=== PATIENT | female | born 2000 | race Caucasian/White ===

== ENCOUNTER 2020-10-27 11:54 | Outpatient (REF) | payer OTHER, SELFPAY | END 2020-10-27 11:55 | disposition home or self-care (01) | LOC: HO.LAB 11:54 | PROVIDERS: Visit Provider Internal Medicine | DX: Z20.828 Contact with and (suspected) exposure to other viral communicable diseases (principal) | CPT/HCPCS: C9803; U0003 ==

== ENCOUNTER 2020-11-11 17:15 | Outpatient (REF) | payer OTHER, SELFPAY | END 2020-11-11 17:16 | disposition home or self-care (01) | LOC: HO.LAB 17:15 | PROVIDERS: Visit Provider Internal Medicine | DX: Z20.828 Contact with and (suspected) exposure to other viral communicable diseases (principal) | CPT/HCPCS: 36415; C9803; U0003 ==

== ENCOUNTER 2020-12-02 16:11 | Emergency (ER) | payer OTHER, SELFPAY ==
[2020-12-02 17:15] VITALS: BP 121/66; PULSE 91; RESP 16; TEMP 35.7; O2SAT 99; BMI 35.3
--- NOTE | 2020-12-02 17:34 | ED.EAR ---
HPI - Ear Problem General Chief complaint: Ear Problems Stated complaint: Earache Time Seen by Provider: 12/02/20 17:17 Source: patient Mode of arrival: ambulatory Limitations: no limitations History of Present Illness HPI Narrative: 20-year-old female with past medical history of recurrent ear infections history of myringotomy tube being bilaterally presents with 1 day of bilateral ear pain, left worse than the right. She does not describe any fevers or chills, loss of hearing, difficulty swallowing or any other concerning symptoms at this time. MD Complaint: ear pain Location: bilateral Duration: constant Severity: moderate Relieving factors: nothing Exacerbating factors: chewing Discharge from ear: no Treatment prior to arrival: oral analgesic Related Data Previous Rx's Medication Instructions Recorded amoxicillin-pot clavulanate 17 ml PO Q12H #340 ml 12/02/20 [Augmentin] Allergies Allergy/AdvReac Type Severity Reaction Status Date / Time No Known Allergies Allergy Verified 12/02/20 17:21 [No Known Allergies*] Review of Systems Review of Systems: Constitutional: No Fever, No Chills ENT/Mouth: Bilateral ear pain Ear Pain, No Hoarseness, No sore throat Eyes: No Eye Pain, No Swelling, No Redness, No Foreign Body Cardiovascular: No Chest Pain, No SOB Respiratory: No Cough, No Dyspnea Gastrointestinal: No Nausea, No Vomiting, No Diarrhea, No abdominal Pain Genitourinary: No Dysuria, No Hematuria Musculoskeletal: No joint pain, No Myalgias, No Joint Swelling Skin: No Skin lacerations, No rash Neuro: No Weakness, No Numbness, No Paresthesias, No Loss of Consciousness, No Dizziness, No Headache Psych: No Anxiety/Panic, No Depression Heme/Lymph: no easy bruising, no Lymphadenopathy Endocrine: No Polyuria, No Polydipsia Yes all other systems are reviewed and are negative PMFSH Past Medical History Attestation statement: The following information was validated with the patient. Source: old records reviewed Medical History Ear infection Social History Social History Alcohol intake: never Smoked in Last 30 Days: No Use of substances other than those prescribed or required for medical reasons: No Any prior treatment program specific to substance use: No Advance Directives: No Advance Directives Information Provided: Yes Physical Exam Vital Signs: Vital Signs: Last Vital Signs Temp 96.2 F L 12/02/20 17:15 Pulse 91 12/02/20 17:15 Resp 16 12/02/20 17:15 BP 121/66 12/02/20 17:15 Pulse Ox 99 12/02/20 17:15 Body Mass Index 35.3 Appearance: Alert. Oriented X3. No acute distress. Eyes: Pupils equal, round and reactive to light. ENT: Pharynx normal. Tympanic membranes scarred bilaterally secondary to tubes placed as a child, bulging membrane noted to the left, no purulent drainage noted. Neck: Normal inspection. Neck supple. No lymphadenopathy, no mastoid tenderness. CVS: Normal heart rate and rhythm. Pulses normal. Respiratory: No respiratory distress. Breath sounds normal. Abdomen: Soft and nontender. Skin: Skin warm and dry. Normal skin color. Normal skin turgor. Extremities: No lower extremity edema. Neuro: No motor deficit. No sensory deficit. Course Course Course Narrative: 20-year-old female with past medical history of recurrent ear infections presents with bilateral ear pain, left worse than the right. Inspection indicates scarring to bilateral tympanic membrane secondary to myringotomy tube in as a child. Membranes are intact, bulging noted to left. Plan of care is to treat with Augmentin, patient does not swallow pills so we will provide liquid Augmentin for her. Referral to ENT. Patient verbalized understanding of and agrees plan of care discharge home. MDM - Ear Differential Diagnosis Differential diagnosis: Likely otitis externa, otitis media and ruptured TM Medical Records Attestation: I reviewed the patient's medical records. Discharge Plan Discharge Clinical Impression: Otitis media Patient Disposition: Home, Self-Care Instructions: Serous Otitis Media (ED) Additional Instructions: You evaluated for bilateral ear pain. We are treating you for otitis media with Augmentin. Please take this medication as directed and complete the entire course of this antibiotic. Please follow-up with ENT. Call and make an appointment. Thank you for choosing this emergency department for evaluation. Please follow-up with primary care physician as needed. Return to the emergency department for any new, concerning, or worsening symptoms. Prescriptions: New amoxicillin-pot clavulanate [Augmentin] 250-62.5 mg/5 mL suspension for reconstitution 17 ml PO Q12H Qty: 340 RF: 0 Referrals: Narciso Martin [Physician] - 2 days Interventions: ED Discharge Assessment Last Done: 12/02/20 18:37 Discharge Date/Time: 12/02/20 18:58 Print Language: Khmer
== END 2020-12-02 18:58 | disposition home or self-care (01) ==
PROVIDERS: Emergency Provider Emergency Medicine; PCP Physician Assistant
DX: H66.93 Otitis media, unspecified, bilateral (principal); Z79.899 Other long term (current) drug therapy
CPT/HCPCS: 99283; 99284

== ENCOUNTER 2021-06-08 19:09 | Emergency (ER) | payer OTHER, SELFPAY ==
[2021-06-08 19:20] VITALS: BP 136/77; PULSE 82; RESP 16; TEMP 36.8; O2SAT 99; BMI 36.6
--- NOTE | 2021-06-08 20:24 | ED.GENADULT ---
HPI - General Adult General Chief complaint: General Medical Stated complaint: ear infection, uti etc Time Seen by Provider: 06/08/21 20:06 Source: patient Mode of arrival: ambulatory Limitations: no limitations History of Present Illness HPI narrative: Patient presents ED for right-sided ear pain and dysuria. Patient states history of multiple ear infections. Patient recently evaluated by ENT specialist who told her she did not have any ear infection and is fine. Patient does have tympanic tubes. Patient denies any abdominal pain, nausea, vomiting, flank pain, fever, or chills. Related Data Previous Rx's Medication Instructions Recorded amoxicillin 250 mg-potassium 17 ml PO Q12H #340 ml 12/02/20 clavulanate 62.5 mg/5 mL oral suspension (Augmentin) cephalexin 500 mg capsule 500 mg PO QID #28 cap 06/08/21 Allergies Allergy/AdvReac Type Severity Reaction Status Date / Time No Known Allergies Allergy Verified 06/08/21 21:49 [No Known Allergies*] PMFSH Past Medical History Medical History Ear infection Social History Social History Alcohol intake: never Advance Directives: No Advance Directives Information Provided: Yes Patient : No Physical Exam Vital Signs: Vital Signs: Last Vital Signs Temp 98.2 F 06/08/21 19:20 Pulse 82 06/08/21 19:20 Resp 16 06/08/21 19:20 BP 136/77 06/08/21 19:20 Pulse Ox 99 06/08/21 19:20 Body Mass Index 36.6 Const: General: cooperative, healthy appearing, comfortable, no acute distress, well developed, alert and awake Orientation/consciousness: patient oriented x3 HENMT: Other: Patient has bilateral tympanic tubes. No signs for infection in either ear Head: Yes normal to inspection, Yes No palpable skull fracture present, Yes normocephalic and Yes atraumatic Ears: hearing grossly normal bilaterally, external ears normal, EAC's normal, mastoids normal and no periauricular adenopathy Eyes: General: appearance normal, both eyes and all related structures Neck: Neck: Yes normal visual inspection, Yes full ROM, Yes no lymphadenopathy, Yes no meningeal signs, Yes trachea midline, Yes supple and No tender Chest: Chest palpation & inspection: normal inspection of the chest and normal palpation of entire chest wall Resp: Effort & Inspection: normal respiratory effort and able to speak in complete sentences Auscultation: clear to auscultation bilaterally Cardio: Jugular venous distension: no JVD Heart sounds: S1 normal heart sound present and S2 normal heart sound present GI: Inspection: Yes normal to inspection and No abdominal wall ecchymosis Palpation (GI): Soft to palpation, not firm, nontender, no guarding and not rigid : General: No CVA tenderness and Yes no CVA tenderness Back/Spine/Pelvis: Back: no CVA tenderness, No CVA tenderness and No back tenderness Skin: General skin exam: no rashes or lesions noted and abnormal elasticity Neuro: General: patient oriented x3 and no meningeal signs Cranial nerves: Yes CN's II-XII intact bilaterally Extrem: General: Yes normal to inspection and Yes full ROM Psych: Appearance: grossly normal, well kempt and not disheveled Course Course Course Narrative: Ear does not look infected. Will send UA. Reevaluation(s) Reevaluation #1: UA shows urinary tract infection. Will be discharged with Keflex Time: 21:57 Medical Decision Making Lab Data Labs: Lab Results 06/08/21 Range/Units 19:38 Urine Color YELLOW Urine Appearance HAZY Urine pH 6.0 (5.0-8.0) Ur Specific [place] >= 1.030 H (1.005-1.025) Urine Protein NEG (NEG-TRACE) MG/DL Urine Glucose (UA) NEG (NEG) MG/DL Urine Ketones NEG (NEG) MG/DL Urine Blood TRACE (NEG) Urine Nitrite NEG (NEG) Ur Leukocyte Esterase TRACE H (NEG) Urine RBC 0-2 (0) /HPF Urine WBC 30-49 H (0-4) /HPF Ur Squamous Epith Cells 2+ /LPF Urine Bacteria 3+ /LPF Discharge Plan Discharge Clinical Impression: UTI (urinary tract infection) Patient Disposition: Home, Self-Care Instructions: Urinary Tract Infection in Women (ED), Earache (ED) Additional Instructions: Your ear does not show infection. A urine shows a urinary tract infection. You will be discharged with antibiotics. Return to ED for any abdominal pain, nausea, vomiting, fever, chills, flank pain, hematuria, vaginal discharge, vaginal bleeding, headache, dizziness, worsening ear pain, or any other concerning symptoms. Please follow up wiht PCP Prescriptions: New cephalexin 500 mg capsule 500 mg PO QID Qty: 28 RF: 0 No Action amoxicillin-pot clavulanate [Augmentin] 250-62.5 mg/5 mL suspension for reconstitution 17 ml PO Q12H Qty: 340 RF: 0 Stand Alone Forms: Work/School Release Interventions: ED Discharge Assessment Last Done: 06/08/21 22:10 Discharge Date/Time: 06/08/21 22:11 Print Language: [place]
[2021-06-08 20:35] LABS: Glucose Urine UA NEG (NEG); Leukocyte Esterase Urine TRACE (NEG); Nitrite Urine NEG (NEG); Specific Gravity - Urine >= 1.030 (1.005-1.025); UACC Culture Trigger YES; Urine Blood TRACE (NEG); Urine Ketones NEG (NEG); Urine Protein NEG (NEG-TRACE)
[2021-06-08 20:36] LABS: Appearance Urine HAZY; Color Urine YELLOW
[2021-06-08 20:58] LABS: Bacteria Urine 3+ /LPF; RBC Urine 0-2 /HPF (0); Squamous Epithelial Cell Urine 2+ /LPF; WBC Urine 30-49 /HPF (0-4)
== END 2021-06-08 22:11 | disposition home or self-care (01) ==
PROVIDERS: Emergency Medicine; Physician Assistant; Emergency Provider Emergency Medicine Emergency Medical Services
DX: N39.0 Urinary tract infection, site not specified (principal); H92.01 Otalgia, right ear; R30.0 Dysuria; Z79.899 Other long term (current) drug therapy
CPT/HCPCS: 36415; 81001; 87086; 87088; 87186; 99284

== ENCOUNTER 2022-01-30 13:13 | Emergency (ER) | payer OTHER, SELFPAY ==
--- NOTE | ~2022-01-30 | US_ITS ---
EXAMINATION: US OBSTETRICAL ULTRASOUND CLINICAL INFORMATION: Abdominal cramping and positive test. COMPARISON: None. LMP: 12/10/2021. Gestational age by maternal dates is 7 weeks 2 days. Estimated date of delivery by maternal dates is 09/16/2022. TECHNIQUE: Transabdominal and transvaginal first trimester OB ultrasound. Transvaginal exam was performed for better visualization of the gestational sac FINDINGS: The uterus is normal in size and shape. There is an intrauterine gestational sac. Mean sac diameter measures 0.8 cm suggesting gestational age of 5 weeks 3 days. No pole or yolk sac is seen. The cervix is normal. The maternal ovaries are normal. There is no fluid in the pelvis. US/US OB pelvic and transvaginal IMPRESSION: Intrauterine gestational sac. Mean sac diameter suggests gestational age of 5 weeks 3 days. No pole or yolk sac seen. This may be due to early gestational age.
[2022-01-30 13:35] VITALS: BP 127/77; PULSE 90; RESP 18; TEMP 37.1; O2SAT 99; BMI 36.3
[2022-01-30 13:52] LABS: Appearance Urine CLEAR; Color Urine YELLOW; Glucose Urine UA NEG (NEG); Leukocyte Esterase Urine NEG (NEG); Nitrite Urine NEG (NEG); Urine Blood NEG (NEG); Urine Ketones NEG (NEG); Urine Protein NEG (NEG-TRACE)
[2022-01-30 13:53] LABS: UPreg QC Valid YES; Urine Pregnancy POSITIVE (NEGATIVE)
--- NOTE | 2022-01-30 14:33 | ECG_ITS ---
Test Reason : CHEST PAIN Blood Pressure : / mmHG Vent. Rate : 081 BPM Atrial Rate : 081 BPM P-R Int : 134 ms QRS Dur : 084 ms QT Int : 350 ms P-R-T Axes : 044 047 019 degrees QTc Int : 406 ms Sinus rhythm with marked sinus arrhythmia Otherwise normal ECG No previous ECGs available Referred By: Jessica Rodríguez Electronically Signed By:TARUN BARRAZA
[2022-01-30 15:28] LABS: IDNOW Serial# 08D9AD1C
[2022-01-30 15:29] LABS: MANUAL DIFF FLAG NO
[2022-01-30 15:29] LABS: COVID-19 Test Negative (Negative); IDNOW Serial# 16C4AD1C
[2022-01-30 15:31] LABS: Influenza A Negative (Negative); Influenza B2 Negative (Negative)
[2022-01-30 15:31] LABS: Basophils Absolute Auto 0.1 X10*3/uL (0.0-0.2); Basophils Percent Auto 0.5 % (0-2); Eosinophils Absolute Auto 0.1 X10*3/uL (0.0-0.4); Eosinophils Percent Auto 1.4 % (0-4); Hematocrit 42.3 % (37.0-47.0); Hemoglobin 13.4 g/dl (12.0-16.0); Imm Gran Abs Auto 0.03 X10*3/uL (0.00-0.03); Imm Gran Pct Auto 0.3 % (0.0-0.4); Lymphocytes Absolute Auto 2.8 X10*3/uL (1.2-4.9); Lymphocytes Percent Auto 27.9 % (20-40); Mean Corpuscular HGB Conc 31.7 g/dl (31.0-35.0); Mean Corpuscular Hemoglobin 24.6 pg (27.0-33.0); Mean Corpuscular Volume 77.8 fL (80.0-98.0); Mean Platelet Volume 10.7 fL (9.4-12.3); Monocytes Absolute Auto 0.6 X10*3/uL (0.1-1.2); Monocytes Percent Auto 6.4 % (2-11); Neutrophils Absolute Auto 6.3 x10*3/uL (2.0-8.3); Neutrophils Percent Auto 63.5 % (45-73); Platelet Count 314 X10*3/uL (160-400); Red Blood Count 5.44 X10*6/uL (4.20-5.50); Red Cell Distribution Width 13.2 % (11.0-16.0); White Blood Count 9.9 X10*3/uL (4.8-10.8)
[2022-01-30 15:47] VITALS: BP 119/77; PULSE 93
[2022-01-30 15:47] LABS: INTERNATIONAL NORM RATIO 1.2 (0.9-1.1); Prothrombin Time 13.2 SEC (9.9-13.0)
[2022-01-30 15:52] LABS: Alanine Aminotransferase 28 U/L (0-31); Albumin Level 4.3 g/dL (3.5-5.0); Alkaline Phosphatase 87 U/L (39-117); Anion Gap 11 (12-20); Aspartate Amino Transferase 15 U/L (5-31); Bilirubin Total 0.3 mg/dL (0.0-1.0); Blood Urea Nitrogen 12 mg/dL (9-16); Calcium 9.2 mg/dL (8.4-10.2); Carbon Dioxide 22 mmol/L (22-29); Chloride 109 mmol/L (96-108); Creatinine Clr Calc Pharmacy 120.7; Estimated Glomerular Filt Rate > 60; Glucose Random 90 mg/dL (60-115); Potassium 4.1 mmol/L (3.3-5.1); Sodium 138 mmol/L (135-145); Total Protein 7.1 g/dL (6.5-8.0)
--- NOTE | 2022-01-30 15:52 | ED_ITS ---
HPI - General Adult General Chief complaint: General Medical <THA Horton Last Filed: 01/30/22 16:37> Stated complaint: dizziness/abd pain/chest tightness <THA Horton Last Filed: 01/30/22 16:37> Time Seen by Provider: 01/30/22 14:06 <THA Horton Last Filed: 01/30/22 16:37> Source: patient <THA Horton Last Filed: 01/30/22 16:37> Mode of arrival: ambulatory <THA Horton Last Filed: 01/30/22 16:37> Limitations: no limitations <THA Horton Last Filed: 01/30/22 16:37> History of Present Illness HPI narrative: 21-year-old female with no significant past medical history presenting to the ED with complaints of intermittent lightheadedness/dizziness with feeling like her heart is racing and abdominal cramping for the past 2 weeks therefore she came here for further evaluation treatment today. She reports her last mens trual period was 12/10/2021. She denies any changes in vision, headaches, ear pain, ringing of the ears, nausea/ vomiting, shortness of breath, dyspnea on exertion, orthopnea, cough, lower extremity edema, calf tenderness, paresthesias, radiation of the abdominal pain, dysuria, hematuria, abnormal v aginal discharge, abnormal vaginal bleeding, recent travel or sick contacts or any other symptoms complaints or concerns at this time. <THA Horton Last Filed: 01/30/22 16:37> MD complaint: Multiple complaints <THA Horton Last Filed: 01/30/22 16:37> Onset (ago): week(s) (2) <THA Horton Last Filed: 01/30/22 16:37> Related Data Home medications: Previous Rx's Medication Instructions Recorded amoxicillin 250 mg-potassium 17 ml PO Q12H #340 ml 12/02/20 clavulanate 62.5 mg/5 mL oral suspension (Augmentin) cephalexin 500 mg capsule 500 mg PO QID #28 cap 06/08/21 <THA Horton Last Filed: 01/30/22 16:37> Allergies/adverse reactions: Allergies Allergy/AdvReac Type Severity Reaction Status Date / Time No Known Allergies Allergy Verified 06/08/21 21:49 [No Known Allergies*] <THA Horton - Last Filed: 01/30/22 16:37> Review of Systems Review of Systems: Constitutional : No Weight loss, No Fever, No Chills, No Night Sweats, No Fatigue, No Malaise ENT/Mouth : No Hearing loss, No Ear Pain, No Nasal Congestion, No Sinus Pain, No Hoarseness, No sore throat, No Rhinorrhea, No Swallowing Difficulty Eyes: No Eye Pain, No Swelling, No Redness, No Foreign Body, No Discharge, No Vision Changes Cardiovascular : + palpitations, No Chest Pain, No SOB, No Dyspnea on Exertion, No Orthopnea, No Edema Respiratory : No Cough, No Sputum, No Wheezing, No Smoke Exposure, No Dyspnea Gastrointestinal : No Nausea, No Vomiting, No Diarrhea, No Constipation, + abdominal Pain, No Hematochezia, No Melena Genitourinary : no irregular bleeding, No Dysuria, No Urinary Frequency, No Hem aturia, No Urinary Incontinence, No Urgency, No Flank Pain, No Urinary Flow Changes, No Hesitancy Musculoskeletal : No joint pain, No Myalgias, No Joint Swelling Skin : No Skin Lesions, No rash Neuro : +lightheadedness, No Weakness, No Numbness, No Paresthesias, No Loss of Consciousness, No Dizziness, No Headache Psych : No Anxiety/Panic, No Depression, No SI/HI/AH/VH, No Social Issues, Heme/Lymph: No Bruising, No Bleeding,No Lymphadenopathy Endocrine : No Polyuria, No Polydipsia, No Temperature Intolerance <THA Horton - Last Filed: 01/30/22 16:37> Yes all other systems are reviewed and are negative <THA Horton - Last Filed: 01/30/22 16:37> [facility] Past Medical History Attestation statement: The following information was validated with the patient. <THA Horton - Last Filed: 01/30/22 16:37> Medical History: Medical History Ear infection <THA Horton - Last Filed: 01/30/22 16:37> Social History Social History: Social History Alcohol intake: never Advance Directives: No Advance Directives Information Provided: Yes <THA Horton - Last Filed: 01/30/22 16:37> Physical Exam ED Vital Signs: Vital Signs - 24 hr 01/30/22 13:35 01/30/22 15:47 Temperature 98.7 F Pulse Rate 90 93 Respiratory Rate 18 Blood Pressure 127/77 119/77 Pulse Oximetry 99 BMI result Body Mass Index 36.3 vital signs have been reviewed as normal and appeared to be correct. Blood pressure normal. Heart rate normal. Respiration rate normal. Temperature normal. Oxygen saturation normal. <THA Horton - Last Filed: 01/30/22 16:37> Vital Signs - 24 hr 01/30/22 13:35 01/30/22 15:47 Temperature 98.7 F Pulse Rate 90 93 Respiratory Rate 18 Blood Pressure 127/77 119/77 Pulse Oximetry 99 BMI result Body Mass Index 36.3 <THA Lopez - Last Filed: 01/30/22 17:12> Appearance: Alert. Oriented X3. No acute distress. Head: Normal external exam. Normocephalic. Atraumatic. Eyes: PERRLA. EOMI. Conjunctiva and sclera normal. Eyelids normal. ENT: EAC normal. TM's Normal. Pharynx normal. Uvula midline. Moist mucous membranes. No lesions/ulcerations or masses noted on the tongue. Normal voice. No trismus noted. No drooling noted. No muffled voice noted. Neck: Normal inspection. Neck supple. FROM. No adenopathy. Thyroid Normal. No tracheal deviation noted. No crepitus is noted. No meningeal signs. No neck mass noted. No signs of trauma noted. CVS: Normal heart rate and rhythm. Heart sound normal. Pulses normal throughout. No murmurs/rales/gallops. Respiratory: No respiratory distress. Painless inspiration. Breath sounds normal. No wheezes/rales/rhonchi noted. Chest nontender. No crepitus is noted. No signs of trauma noted. No accessory muscle usage noted or decreased air movement noted. No signs of trauma. Abdomen: Soft and nontender. Bowel sounds normal in all 4 quadrants. No distention noted. No organomegaly noted. No visible injury noted. Back: No CVA tenderness. Full range of motion noted. Nontender. No signs of trauma. Patient neuro intact bilaterally and distally on all 4 extremities. Patient's reflexes intact bilaterally and distally on all 4 extremities. No rashes/lesion/induration/fluctuance or signs of infection noted. Skin: Skin warm and dry. Normal skin color. Normal skin turgor. No rashes/lesions/lacerations noted. Extremities: No lower extremity edema. No calf tenderness is noted. Extremities exhibit normal range of motion and nontender. Neuro: Oriented X 3. No motor deficit. No sensory deficit. Reflexes normal. Normal steady gait. No focal neuro deficits noted. CN's II-XII intact bilaterally? Vascular: + radial pulses/+ 2 distal pedal pulses/+2 dorsalis pedis b/l. Normal cap refill. No cyanosis noted to upper extremity nails and lower extremity toes nails. <THA Horton - Last Filed: 01/30/22 16:37> Course Course Course Narrative: 14:30pm - 21-year-old female with no significant past medical history presenting to the ED with complaints of intermittent lightheadedness/dizziness with feeling like her heart is racing and abdominal cramping for the past 2 weeks therefore she came here for further evaluation treatment today. She reports her last menstrual period was 12/10/2021. - patient had a urine and urine while in the waiting room and she came out positive for she was unaware about this. She reports that she was planning on having a baby with her significant other within the next year. Otherwise no evidence of UTI. Plan: labs, EKG, UA, OB ultrasound then re-evaluate. <THA Horton - Last Filed: 01/30/22 16:37> 14:30pm - 21-year-old female with no significant past medical history presenting to the ED with complaints of intermittent lightheadedness/dizziness with feeling like her heart is racing and abdominal cramping for the past 2 weeks therefore she came here for further evaluation treatment today. She reports her last menstru al period was 12/10/2021. - patient had a urine and urine while in the waiting room and she came out positive for she was unaware about this. She reports that she was planning on having a baby with her significant other within the next year. Otherwise no evidence of UTI. Plan: labs, EKG, UA, OB ultrasound then re-evaluate. 1700: Patient's OB US showed a gestational sac and was otherwise unremarkable. I explained all results to the patient. Patient cleared for discharge. <THA Lopez - Last Filed: 01/30/22 17:12> Reevaluation(s) Reevaluation #1: - labs reviewed chloride 109. Anion gap 11. Serum quant 2712. orthostatic vitals within normal limits. Otherwise all other labs are within normal limits. Patient awaiting OB ultrasound sign out to Dr. John cameron pending ultrasound. <THA Horton - Last Filed: 01/30/22 16:37> Time: 16:35 <THA Horton - Last Filed: 01/30/22 16:37> Medical Decision Making Medical Records Medical records reviewed: Yes I reviewed the patient's medical records. <THA Horton - Last File d: 01/30/22 16:37> Lab Data Lab results reviewed: Yes I reviewed the patient's lab results. <THA Horton - Last Filed: 01/30/22 16:37> Result diagrams: : 01/30/22 15:25 01/30/22 15:25 <THA Horton - Last Filed: 01/30/22 16:37> Labs: Lab Results 01/30/22 01/30/22 01/30/22 Range/Units 13:45 13:45 15:11 WBC (4.8-10.8) X10*3/uL RBC (4.20-5.50) X10*6/uL Hgb (12.0-16.0) g/dl Hct (37.0-47.0) % MCV (80.0-98.0) fL MCH (27.0-33.0) pg MCHC (31.0-35.0) g/dl RDW (11.0-16.0) % Plt Count (160-400) X10*3/uL MPV (9.4-12.3) fL Immature Gran % (Auto) (0.0-0.4) % Neut % (Auto) (45-73) % Lymph % (Auto) (20-40) % [place] % (Auto) (2-11) % Eos % (Auto) (0-4) % Baso % (Auto) (0-2) % Lymph # (Auto) (1.2-4.9) X10*3/uL [place] # (Auto) (0.1-1.2) X10*3/uL Eos # (Auto) (0.0-0.4) X10*3/uL Baso # (Auto) (0.0-0.2) X10*3/uL Abs Immat Gran (auto) (0.00-0.03) X10*3/uL Absolute Neuts (auto) (2.0-8.3) x10*3/uL Absolute Nucleated RBC (0.0-0.012) X10*3/uL Nucleated RBC % (auto) (0.0-0.2) /100WBC PT (9.9-13.0) SEC INR (0.9-1.1) Sodium (135-145) mmol/L Potassium (3.3-5.1) mmol/L Chloride (96-108) mmol/L Carbon Dioxide (22-29) mmol/L Anion Gap (12-20) BUN (9-16) mg/dL Creatinine (0.5-1.4) mg/dL Estim Creat Clear Calc Estimated GFR Random Glucose (60-115) mg/dL Calcium (8.4-10.2) mg/dL Magnesium (1.6-2.6) mg/dL Total Bilirubin (0.0-1.0) mg/dL AST (5-31) U/L ALT (0-31) U/L Alkaline Phosphatase (39-117) U/L Troponin I High Sens (<3.5-17.0) ng/L Total Protein (6.5-8.0) g/dL Albumin (3.5-5.0) g/dL Beta HCG, Quant mIU/mL Urine Color YELLOW Urine Appearance CLEAR Urine pH 7.0 (5.0-8.0) Ur Specific [place] 1.020 (1.005-1.025) Urine Protein NEG (NEG-TRACE) MG/DL Urine Glucose (UA) NEG (NEG) MG/DL Urine Ketones NEG (NEG) MG/DL Urine Blood NEG (NEG) Urine Nitrite NEG (NEG) Ur Leukocyte Esterase NEG (NEG) Urine Test POSITIVE H (NEGATIVE) COVID-19 (ALIYAH) (Negative) COVID-19 Clin Com Influenza Type A (RISHABH) Negative (Negative) Influenza Type B (RISHABH) Negative (Negative) Influenza A & B Note See Note 01/30/22 01/30/22 01/30/22 Range/Units 15:11 15:25 15:25 WBC 9.9 (4.8-10.8) X10*3/uL RBC 5.44 (4.20-5.50) X10*6/uL Hgb 13.4 (12.0-16.0) g/dl Hct 42.3 (37.0-47.0) % MCV 77.8 L (80.0-98.0) fL MCH 24.6 L (27.0-33.0) pg MCHC 31.7 (31.0-35.0) g/dl RDW 13.2 (11.0-16.0) % Plt Count 314 (160-400) X10*3/uL MPV 10.7 (9.4-12.3) fL Immature Gran % (Auto) 0.3 (0.0-0.4) % Neut % (Auto) 63.5 (45-73) % Lymph % (Auto) 27.9 (20-40) % [place] % (Auto) 6.4 (2-11) % Eos % (Auto) 1.4 (0-4) % Baso % (Auto) 0.5 (0-2) % Lymph # (Auto) 2.8 (1.2-4.9) X10*3/uL [place] # (Auto) 0.6 (0.1-1.2) X10*3/uL Eos # (Auto) 0.1 (0.0-0.4) X10*3/uL Baso # (Auto) 0.1 (0.0-0.2) X10*3/uL Abs Immat Gran (auto) 0.03 (0.00-0.03) X10*3/uL Absolute Neuts (auto) 6.3 (2.0-8.3) x10*3/uL Absolute Nucleated RBC 0.000 (0.0-0.012) X10*3/uL Nucleated RBC % (auto) 0.0 (0.0-0.2) /100WBC PT (9.9-13.0) SEC INR (0.9-1.1) Sodium 138 (135-145) mmol/L Potassium 4.1 (3.3-5.1) mmol/L Chloride 109 H (96-108) mmol/L Carbon Dioxide 22 (22-29) mmol/L Anion Gap 11 L (12-20) BUN 12 (9-16) mg/dL Creatinine 0.67 (0.5-1.4) mg/dL Estim Creat Clear Calc 120.7 Estimated GFR > 60 Random Glucose 90 (60-115) mg/dL Calcium 9.2 (8.4-10.2) mg/dL Magnesium 2.0 (1.6-2.6) mg/dL Total Bilirubin 0.3 (0.0-1.0) mg/dL AST 15 (5-31) U/L ALT 28 (0-31) U/L Alkaline Phosphatase 87 (39-117) U/L Troponin I High Sens (<3.5-17.0) ng/L Total Protein 7.1 (6.5-8.0) g/dL Albumin 4.3 (3.5-5.0) g/dL Beta HCG, Quant 2712 mIU/mL Urine Color Urine Appearance Urine pH (5.0-8.0) Ur Specific [place] (1.005-1.025) Urine Protein (NEG-TRACE) MG/DL Urine Glucose (UA) (NEG) MG/DL Urine Ketones (NEG) MG/DL Urine Blood (NEG) Urine Nitrite (NEG) Ur Leukocyte Esterase (NEG) Urine Test (NEGATIVE) COVID-19 (ALIYAH) Negative (Negative) COVID-19 Clin Com See Note Influenza Type A (RISHABH) (Negative) Influenza Type B (RISHABH) (Negative) Influenza A & B Note 01/30/22 01/30/22 Range/Units 15:25 15:25 WBC (4.8-10.8) X10*3/uL RBC (4.20-5.50) X10*6/uL Hgb (12.0-16.0) g/dl Hct (37.0-47.0) % MCV (80.0-98.0) fL MCH (27.0-33.0) pg MCHC (31.0-35.0) g/dl RDW (11.0-16.0) % Plt Count (160-400) X10*3/uL MPV (9.4-12.3) fL Immature Gran % (Auto) (0.0-0.4) % Neut % (Auto) (45-73) % Lymph % (Auto) (20-40) % [place] % (Auto) (2-11) % Eos % (Auto) (0-4) % Baso % (Auto) (0-2) % Lymph # (Auto) (1.2-4.9) X10*3/uL [place] # (Auto) (0.1-1.2) X10*3/uL Eos # (Auto) (0.0-0.4) X10*3/uL Baso # (Auto) (0.0-0.2) X10*3/uL Abs Immat Gran (auto) (0.00-0.03) X10*3/uL Absolute Neuts (auto) (2.0-8.3) x10*3/uL Absolute Nucleated RBC (0.0-0.012) X10*3/uL Nucleated RBC % (auto) (0.0-0.2) /100WBC PT 13.2 H (9.9-13.0) SEC INR 1.2 H (0.9-1.1) Sodium (135-145) mmol/L Potassium (3.3-5.1) mmol/L Chloride (96-108) mmol/L Carbon Dioxide (22-29) mmol/L Anion Gap (12-20) BUN (9-16) mg/dL Creatinine (0.5-1.4) mg/dL Estim Creat Clear Calc Estimated GFR Random Glucose (60-115) mg/dL Calcium (8.4-10.2) mg/dL Magnesium (1.6-2.6) mg/dL Total Bilirubin (0.0-1.0) mg/dL AST (5-31) U/L ALT (0-31) U/L Alkaline Phosphatase (39-117) U/L Troponin I High Sens < 3.5 (<3.5-17.0) ng/L Total Protein (6.5-8.0) g/dL Albumin (3.5-5.0) g/dL Beta HCG, Quant mIU/mL Urine Color Urine Appearance Urine pH (5.0-8.0) Ur Specific [place] (1.005-1.025) Urine Protein (NEG-TRACE) MG/DL Urine Glucose (UA) (NEG) MG/DL Urine Ketones (NEG) MG/DL Urine Blood (NEG) Urine Nitrite (NEG) Ur Leukocyte Esterase (NEG) Urine Test (NEGATIVE) COVID-19 (ALIYAH) (Negative) COVID-19 Clin Com Influenza Type A (RISHABH) (Negative) Influenza Type B (RISHABH) (Negative) Influenza A & B Note <THA Horton - Last Filed: 01/30/22 16:37> Lab Results 01/30/22 01/30/22 01/30/22 Range/Units 13:45 13:45 15:11 WBC (4.8-10.8) X10*3/uL RBC (4.20-5.50) X10*6/uL Hgb (12.0-16.0) g/dl Hct (37.0-47.0) % MCV (80.0-98.0) fL MCH (27.0-33.0) pg MCHC (31.0-35.0) g/dl RDW (11.0-16.0) % Plt Count (160-400) X10*3/uL MPV (9.4-12.3) fL Immature Gran % (Auto) (0.0-0.4) % Neut % (Auto) (45-73) % Lymph % (Auto) (20-40) % [place] % (Auto) (2-11) % Eos % (Auto) (0-4) % Baso % (Auto) (0-2) % Lymph # (Auto) (1.2-4.9) X10*3/uL [place] # (Auto) (0.1-1.2) X10*3/uL Eos # (Auto) (0.0-0.4) X10*3/uL Baso # (Auto) (0.0-0.2) X10*3/uL Abs Immat Gran (auto) (0.00-0.03) X10*3/uL Absolute Neuts (auto) (2.0-8.3) x10*3/uL Absolute Nucleated RBC (0.0-0.012) X10*3/uL Nucleated RBC % (auto) (0.0-0.2) /100WBC PT (9.9-13.0) SEC INR (0.9-1.1) Sodium (135-145) mmol/L Potassium (3.3-5.1) mmol/L Chloride (96-108) mmol/L Carbon Dioxide (22-29) mmol/L Anion Gap (12-20) BUN (9-16) mg/dL Creatinine (0.5-1.4) mg/dL Estim Creat Clear Calc Estimated GFR Random Glucose (60-115) mg/dL Calcium (8.4-10.2) mg/dL Magnesium (1.6-2.6) mg/dL Total Bilirubin (0.0-1.0) mg/dL AST (5-31) U/L ALT (0-31) U/L Alkaline Phosphatase (39-117) U/L Troponin I High Sens (<3.5-17.0) ng/L Total Protein (6.5-8.0) g/dL Albumin (3.5-5.0) g/dL Beta HCG, Quant mIU/mL Urine Color YELLOW Urine Appearance CLEAR Urine pH 7.0 (5.0-8.0) Ur Specific [place] 1.020 (1.005-1.025) Urine Protein NEG (NEG-TRACE) MG/DL Urine Glucose (UA) NEG (NEG) MG/DL Urine Ketones NEG (NEG) MG/DL Urine Blood NEG (NEG) Urine Nitrite NEG (NEG) Ur Leukocyte Esterase NEG (NEG) Urine Test POSITIVE H (NEGATIVE) COVID-19 (ALIYAH) (Negative) COVID-19 Clin Com Influenza Type A (RISHABH) Negative (Negative) Influenza Type B (RISHABH) Negative (Negative) Influenza A & B Note See Note 01/30/22 01/30/22 01/30/22 Range/Units 15:11 15:25 15:25 WBC 9.9 (4.8-10.8) X10*3/uL RBC 5.44 (4.20-5.50) X10*6/uL Hgb 13.4 (12.0-16.0) g/dl Hct 42.3 (37.0-47.0) % MCV 77.8 L (80.0-98.0) fL MCH 24.6 L (27.0-33.0) pg MCHC 31.7 (31.0-35.0) g/dl RDW 13.2 (11.0-16.0) % Plt Count 314 (160-400) X10*3/uL MPV 10.7 (9.4-12.3) fL Immature Gran % (Auto) 0.3 (0.0-0.4) % Neut % (Auto) 63.5 (45-73) % Lymph % (Auto) 27.9 (20-40) % [place] % (Auto) 6.4 (2-11) % Eos % (Auto) 1.4 (0-4) % Baso % (Auto) 0.5 (0-2) % Lymph # (Auto) 2.8 (1.2-4.9) X10*3/uL [place] # (Auto) 0.6 (0.1-1.2) X10*3/uL Eos # (Auto) 0.1 (0.0-0.4) X10*3/uL Baso # (Auto) 0.1 (0.0-0.2) X10*3/uL Abs Immat Gran (auto) 0.03 (0.00-0.03) X10*3/uL Absolute Neuts (auto) 6.3 (2.0-8.3) x10*3/uL Absolute Nucleated RBC 0.000 (0.0-0.012) X10*3/uL Nucleated RBC % (auto) 0.0 (0.0-0.2) /100WBC PT (9.9-13.0) SEC INR (0.9-1.1) Sodium 138 (135-145) mmol/L Potassium 4.1 (3.3-5.1) mmol/L Chloride 109 H (96-108) mmol/L Carbon Dioxide 22 (22-29) mmol/L Anion Gap 11 L (12-20) BUN 12 (9-16) mg/dL Creatinine 0.67 (0.5-1.4) mg/dL Estim Creat Clear Calc 120.7 Estimated GFR > 60 Random Glucose 90 (60-115) mg/dL Calcium 9.2 (8.4-10.2) mg/dL Magnesium 2.0 (1.6-2.6) mg/dL Total Bilirubin 0.3 (0.0-1.0) mg/dL AST 15 (5-31) U/L ALT 28 (0-31) U/L Alkaline Phosphatase 87 (39-117) U/L Troponin I High Sens (<3.5-17.0) ng/L Total Protein 7.1 (6.5-8.0) g/dL Albumin 4.3 (3.5-5.0) g/dL Beta HCG, Quant 2712 mIU/mL Urine Color Urine Appearance Urine pH (5.0-8.0) Ur Specific [place] (1.005-1.025) Urine Protein (NEG-TRACE) MG/DL Urine Glucose (UA) (NEG) MG/DL Urine Ketones (NEG) MG/DL Urine Blood (NEG) Urine Nitrite (NEG) Ur Leukocyte Esterase (NEG) Urine Test (NEGATIVE) COVID-19 (ALIYAH) Negative (Negative) COVID-19 Clin Com See Note Influenza Type A (RISHABH) (Negative) Influenza Type B (RISHABH) (Negative) Influenza A & B Note 01/30/22 01/30/22 Range/Units 15:25 15:25 WBC (4.8-10.8) X10*3/uL RBC (4.20-5.50) X10*6/uL Hgb (12.0-16.0) g/dl Hct (37.0-47.0) % MCV (80.0-98.0) fL MCH (27.0-33.0) pg MCHC (31.0-35.0) g/dl RDW (11.0-16.0) % Plt Count (160-400) X10*3/uL MPV (9.4-12.3) fL Immature Gran % (Auto) (0.0-0.4) % Neut % (Auto) (45-73) % Lymph % (Auto) (20-40) % [place] % (Auto) (2-11) % Eos % (Auto) (0-4) % Baso % (Auto) (0-2) % Lymph # (Auto) (1.2-4.9) X10*3/uL [place] # (Auto) (0.1-1.2) X10*3/uL Eos # (Auto) (0.0-0.4) X10*3/uL Baso # (Auto) (0.0-0.2) X10*3/uL Abs Immat Gran (auto) (0.00-0.03) X10*3/uL Absolute Neuts (auto) (2.0-8.3) x10*3/uL Absolute Nucleated RBC (0.0-0.012) X10*3/uL Nucleated RBC % (auto) (0.0-0.2) /100WBC PT 13.2 H (9.9-13.0) SEC INR 1.2 H (0.9-1.1) Sodium (135-145) mmol/L Potassium (3.3-5.1) mmol/L Chloride (96-108) mmol/L Carbon Dioxide (22-29) mmol/L Anion Gap (12-20) BUN (9-16) mg/dL Creatinine (0.5-1.4) mg/dL Estim Creat Clear Calc Estimated GFR Random Glucose (60-115) mg/dL Calcium (8.4-10.2) mg/dL Magnesium (1.6-2.6) mg/dL Total Bilirubin (0.0-1.0) mg/dL AST (5-31) U/L ALT (0-31) U/L Alkaline Phosphatase (39-117) U/L Troponin I High Sens < 3.5 (<3.5-17.0) ng/L Total Protein (6.5-8.0) g/dL Albumin (3.5-5.0) g/dL Beta HCG, Quant mIU/mL Urine Color Urine Appearance Urine pH (5.0-8.0) Ur Specific [place] (1.005-1.025) Urine Protein (NEG-TRACE) MG/DL Urine Glucose (UA) (NEG) MG/DL Urine Ketones (NEG) MG/DL Urine Blood (NEG) Urine Nitrite (NEG) Ur Leukocyte Esterase (NEG) Urine Test (NEGATIVE) COVID-19 (ALIYAH) (Negative) COVID-19 Clin Com Influenza Type A (RISHABH) (Negative) Influenza Type B (RISHABH) (Negative) Influenza A & B Note <THA Lopez - Last Filed: 01/30/22 17:12> ECG Data Attestation: I personally reviewed and interpreted this ECG as follows: <THA Horton - Last Filed: 01/30/22 16:37> Interpretation: Sinus rhythm with marked sinus arrhythmia with ventricular rate of 810 with a normal RI interval normal QRS duration normal QT/QTC Interval no acute ischemic change are noted. No prior EKG to compare to at this time. <THA Horton Last Filed: 01/30/22 16:37> Discharge Plan Discharge Clinical Impression: <THA Horton Last Filed: 01/30/22 16:37> Patient Disposition: Home, Self-Care <THA Horton Last Filed: 01/30/22 16:37> Instructions: (ED) <THA Horton - Last Filed: 01/30/22 16:37> Prescriptions: No Action amoxicillin-pot clavulanate [Augmentin] 250-62.5 mg/5 mL suspension for reconstitution 17 ml PO Q12H Qty: 340 0RF Rx Instructions: Patient does not swallow pills, please give liquid Augmentin 875 mg p.o. b.i.d. for 10 days. May substitute as needed. cephalexin 500 mg capsule 500 mg PO QID Qty: 28 0RF <THA Horton - Last Filed: 01/30/22 16:37> Referrals: Brandon Barkley MD [Physician] - 2 days <THA Horton - Last Filed: 01/30/22 16:37> Interventions: ED Discharge Assessment Last Done: 01/30/22 17:04 <THA Horton Last Filed: 01/30/22 16:37> Discharge Date/Time: 01/30/22 17:06 <THA Horton - Last Filed: 01/30/22 16:37> Print Language: [place]an <THA Horton Last Filed: 01/30/22 16:37>
[2022-01-30 15:55] LABS: Troponin-I High Sensitivity < 3.5 ng/L (<3.5-17.0)
[2022-01-30 15:58] LABS: HCG Quantitative 2712 mIU/mL
== END 2022-01-30 17:06 | disposition home or self-care (01) ==
PROVIDERS: Physician Assistant Medical; Emergency Provider Emergency Medicine
DX: R42 Dizziness and giddiness (principal); R07.89 Other chest pain; R10.2 Pelvic and perineal pain; Z20.822 Contact with and (suspected) exposure to COVID-19; Z79.899 Other long term (current) drug therapy
CPT/HCPCS: 36415; 76801; 76817; 80053; 81003; 81025; 83735; 84484; 84702; 85025; 85610; 87502; 87635; 93005; 99284

== ENCOUNTER 2022-02-03 07:20 | Emergency (ER) | payer OTHER, SELFPAY ==
--- NOTE | ~2022-02-03 | US_ITS ---
EXAMINATION: US OBSTETRICAL ULTRASOUND CLINICAL INFORMATION: Vaginal bleeding. Decreasing HCG quants COMPARISON: None. LMP: 12/10/2021. Gestational age by maternal dates is 7 weeks and 6 days. Estimated date of delivery by maternal dates is 09/16/2022. TECHNIQUE: Routine transabdominal and transvaginal imaging of pelvis is performed. FINDINGS: There is a single intrauterine gestational sac in the lower uterine segment. There is debris visualized within the gestational sac. pole and yolk sac are not visualized. No heartbeat seen either. The endometrium is heterogeneous and thickened measuring 1.8 cm. Based on gestational sac measurements the ultrasound is 5 weeks and 4 days and MICHA of 10/02/2022, somewhat similar to last exam from 01/30/2022. MATERNAL ADNEXA: The right maternal ovary measures 2.5 x 1.4 x 1.9 cm. The left maternal ovary measures 2.9 x 0.9 x 1.3 cm. There is a small adnexal cyst measuring 1.5 x 1.2 x 1.8 cm. There is no significant maternal adnexal mass. No maternal pelvic ascites. US/US OB pelvic and transvaginal IMPRESSION: Low-lying gestational sac compared to last study likely spontaneous in process. No pole or yolk sac seen. Thickened heterogeneous uterus measuring 1.8 cm. Left adnexal 1.8 cm cyst
[2022-02-03 07:37] VITALS: BP 137/73; PULSE 97; RESP 20; TEMP 37.1; O2SAT 98
--- NOTE | 2022-02-03 08:03 | ED_ITS ---
HPI - General Adult General Chief complaint: Vaginal Bleeding Stated complaint: Miscarriage? Time Seen by Provider: 02/03/22 07:21 Source: patient Mode of arrival: ambulatory Limitations: no limitations History of Present Illness HPI narrative: Comes to the emergency room complaining of vaginal bleeding. Patient is a at approximately 6 weeks of gestational age by ultrasound. Four days ago, patient was diagnosed with . This morning, patient started having lower abdominal cramping and heavy vaginal bleeding. Related Data Previous Rx's Medication Instructions Recorded amoxicillin 250 mg-potassium 17 ml PO Q12H #340 ml 12/02/20 clavulanate 62.5 mg/5 mL oral suspension (Augmentin) cephalexin 500 mg capsule 500 mg PO QID #28 cap 06/08/21 misoprostol 200 mcg tablet 800 mcg VAGINAL ONCE #4 tab 02/03/22 Allergies Allergy/AdvReac Type Severity Reaction Status Date / Time No Known Allergies Allergy Verified 02/03/22 10:37 [No Known Allergies*] Review of Systems Review of Systems: Constitutional : No Weight loss, No Fever, No Chills, No Night Sweats, No Fatigue, No Malaise ENT/Mouth : No Hearing loss, No Ear Pain, No Nasal Congestion, No Sinus Pain, No Hoarseness, No sore throat, No Rhinorrhea, No Swallowing Difficulty Eyes: No Eye Pain, No Swelling, No Redness, No Foreign Body, No Discharge, No Vision Changes Cardiovascular : No Chest Pain, No SOB, No Dyspnea on Exertion, No Orthopnea, No Edema, No Palpitations Respiratory : No Cough, No Sputum, No Wheezing, No Smoke Exposure, No Dyspnea Gastrointestinal : No Nausea, No Vomiting, No Diarrhea, No Constipation, complaining of lower abdominal cramping, No Hematochezia, No Melena Genitourinary : Complaining of heavy vaginal bleeding starting this morning, currently . No Dysuria, No Urinary Frequency, No Hematuria, No Urinary Incontinence, No Urgency, No Flank Pain, No Urinary Flow Changes, No Hesitancy Musculoskeletal : No joint pain, No Myalgias, No Joint Swelling Skin : No Skin Lesions, No rash Neuro : No Weakness, No Numbness, No Paresthesias, No Loss of Consciousness, No Dizziness, No Headache Psych : No Anxiety/Panic, No Depression, No SI/HI/AH/VH, No Social Issues, Heme/Lymph: No Bruising, No Bleeding,No Lymphadenopathy Endocrine : No Polyuria, No Polydipsia, No Temperature Intolerance [facility] Past Medical History Medical History Ear infection Social History Social History Alcohol intake: never Patient Tobacco Use Status: Never used Tobacco Use of substances other than those prescribed or required for medical reasons: No Advance Directives: No Advance Directives Information Provided: No Patient : Yes Physical Exam ED Vital Signs: Vital Signs - 24 hr 02/03/22 07:37 02/03/22 10:04 Temperature 98.8 F 98 F Pulse Rate 97 76 Respiratory Rate 20 16 Blood Pressure 137/73 113/76 Pulse Oximetry 98 98 BMI result Body Mass Index 36.3 Const Other: Appearance: Alert. Oriented X3. No acute distress. Eyes: Pupils equal, round and reactive to light. ENT: Pharynx normal. Neck: Normal inspection. Neck supple. No lymph nodes noted. No crepitus CVS: Normal heart rate and rhythm. Pulses normal. Normal S1 and S2 Respiratory: No respiratory distress. Breath sounds normal. No Wheezing. No rales Abdomen: Soft and nontender. No rigidity. No distention. : There is moderate amount of blood in the vaginal vault, cervix is open, passing tissue Skin: Skin warm and dry. Normal skin color. Normal skin turgor. Extremities: No lower extremity edema. No Lacerations. No Rash Neuro: Oriented X 3. No motor deficit. No sensory deficit. Moving all extremities. No slurred speech. CN 2 through 12 grossly intact Psych: calm, cooperative, normal affect Course Course Course Narrative: Patient's hemoglobin is stable, chemistry within normal limits. Patient's blood type is B negative. We will go ahead and give the patient 1 dose of RhoGAM I discussed with the patient that her beta hCG is dropping, also her cervix is open and have moderate vaginal bleeding and passing tissue, patient is actively miscarrying. Ultrasound is pending I discussed the ultrasound with the patient, the patient's ultrasound shows the patient is having a spontaneous . I discussed the patient with Dr. Barkley, who will come down to evaluate the patient to make sure that patient does not need a D&C. At this time, patient remains stable. Dr. Barkley discussed the treatment options with the patient. Patient chose to get mifepristone PO in the ED 200mg and she will get 800 mg vaginally once Patient ready for discharge and will follow up with Dr. Barkley Medical Decision Making Lab Data Result diagrams: 02/03/22 08:33 02/03/22 08:32 Labs: Lab Results 02/03/22 02/03/22 02/03/22 Range/Units 08:32 08:32 08:33 WBC 9.4 (4.8-10.8) X10*3/uL RBC 5.32 (4.20-5.50) X10*6/uL Hgb 13.2 (12.0-16.0) g/dl Hct 41.0 (37.0-47.0) % MCV 77.1 L (80.0-98.0) fL MCH 24.8 L (27.0-33.0) pg MCHC 32.2 (31.0-35.0) g/dl RDW 13.3 (11.0-16.0) % Plt Count 279 (160-400) X10*3/uL MPV 11.0 (9.4-12.3) fL Immature Gran % (Auto) 0.2 (0.0-0.4) % Neut % (Auto) 69.5 (45-73) % Lymph % (Auto) 22.1 (20-40) % [place] % (Auto) 6.4 (2-11) % Eos % (Auto) 1.4 (0-4) % Baso % (Auto) 0.4 (0-2) % Lymph # (Auto) 2.1 (1.2-4.9) X10*3/uL [place] # (Auto) 0.6 (0.1-1.2) X10*3/uL Eos # (Auto) 0.1 (0.0-0.4) X10*3/uL Baso # (Auto) 0.0 (0.0-0.2) X10*3/uL Abs Immat Gran (auto) 0.02 (0.00-0.03) X10*3/uL Absolute Neuts (auto) 6.5 (2.0-8.3) x10*3/uL Absolute Nucleated RBC 0.000 (0.0-0.012) X10*3/uL Nucleated RBC % (auto) 0.0 (0.0-0.2) /100WBC Sodium 139 (135-145) mmol/L Potassium 4.0 (3.3-5.1) mmol/L Chloride 108 (96-108) mmol/L Carbon Dioxide 21 L (22-29) mmol/L Anion Gap 14 (12-20) BUN 10 (9-16) mg/dL Creatinine 0.66 (0.5-1.4) mg/dL Estim Creat Clear Calc TNP Estimated GFR > 60 Random Glucose 97 (60-115) mg/dL Calcium 9.3 (8.4-10.2) mg/dL Total Bilirubin 0.4 (0.0-1.0) mg/dL Direct Bilirubin 0.2 (0.0-0.5) mg/dL AST 13 (5-31) U/L ALT 22 (0-31) U/L Alkaline Phosphatase 82 (39-117) U/L Total Protein 6.9 (6.5-8.0) g/dL Albumin 4.2 (3.5-5.0) g/dL Beta HCG, Quant 2334 mIU/mL Blood Type B Negative Discharge Plan Discharge Clinical Impression: Spontaneous Patient Disposition: Home, Self-Care Instructions: Miscarriage (ED) Prescriptions: New misoprostol 200 mcg tablet 800 mcg vaginal ONCE Qty: 4 0RF No Action amoxicillin-pot clavulanate [Augmentin] 250-62.5 mg/5 mL suspension for reconstitution 17 ml PO Q12H Qty: 340 0RF Rx Instructions: Patient does not swallow pills, please give liquid Augmentin 875 mg p.o. b.i.d. for 10 days. May substitute as needed. cephalexin 500 mg capsule 500 mg PO QID Qty: 28 0RF Referrals: Brandon Barkley MD [Physician] - 2 days
[2022-02-03 08:39] LABS: MANUAL DIFF FLAG NO
[2022-02-03 08:40] LABS: Basophils Percent Auto 0.4 % (0-2); Eosinophils Absolute Auto 0.1 X10*3/uL (0.0-0.4); Eosinophils Percent Auto 1.4 % (0-4); Hemoglobin 13.2 g/dl (12.0-16.0); Imm Gran Abs Auto 0.02 X10*3/uL (0.00-0.03); Imm Gran Pct Auto 0.2 % (0.0-0.4); Lymphocytes Absolute Auto 2.1 X10*3/uL (1.2-4.9); Lymphocytes Percent Auto 22.1 % (20-40); Mean Corpuscular HGB Conc 32.2 g/dl (31.0-35.0); Mean Corpuscular Hemoglobin 24.8 pg (27.0-33.0); Mean Corpuscular Volume 77.1 fL (80.0-98.0); Monocytes Absolute Auto 0.6 X10*3/uL (0.1-1.2); Monocytes Percent Auto 6.4 % (2-11); Neutrophils Absolute Auto 6.5 x10*3/uL (2.0-8.3); Neutrophils Percent Auto 69.5 % (45-73); Platelet Count 279 X10*3/uL (160-400); Red Blood Count 5.32 X10*6/uL (4.20-5.50); Red Cell Distribution Width 13.3 % (11.0-16.0); White Blood Count 9.4 X10*3/uL (4.8-10.8)
[2022-02-03 08:58] LABS: Alanine Aminotransferase 22 U/L (0-31); Albumin Level 4.2 g/dL (3.5-5.0); Alkaline Phosphatase 82 U/L (39-117); Anion Gap 14 (12-20); Aspartate Amino Transferase 13 U/L (5-31); Bilirubin Direct 0.2 mg/dL (0.0-0.5); Bilirubin Total 0.4 mg/dL (0.0-1.0); Blood Urea Nitrogen 10 mg/dL (9-16); Calcium 9.3 mg/dL (8.4-10.2); Carbon Dioxide 21 mmol/L (22-29); Chloride 108 mmol/L (96-108); Estimated Glomerular Filt Rate > 60; Glucose Random 97 mg/dL (60-115); Sodium 139 mmol/L (135-145); Total Protein 6.9 g/dL (6.5-8.0)
[2022-02-03 09:03] LABS: HCG Quantitative 2334 mIU/mL
[2022-02-03 10:04] VITALS: BP 113/76; PULSE 76; RESP 16; TEMP 36.6; O2SAT 98
[2022-02-03 10:37] VITALS: BMI 36.3
[2022-02-03] MEDS: Rho(D) Immune Globulin 300 MCG SYRINGE IM (11:48)
--- NOTE | 2022-02-03 13:00 | P.CONOB_ITS ---
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 Following workup was done emergency room H&H 13., hCG on 01/30 was 2712 dropped to 01/23/2034 today. 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 Review of Systems ROS Unobtainable: All systems reviewed & are unremarkable except as noted in HPI and below Cardiovascular: Denies Palpatations, Loss of consciousness or Chest pain Respiratory: Denies Cough, Wheezing or Shortness of breath Musculoskeletal: Denies Low back pain Gastrointestinal: Denies Heartburn, Constipation, Diarrhea, Nausea or Vomiting Genitourinary: Denies Pain with urination, Burning with urination or Urinary frequency Neurological: Denies Migranes Psychological: Denies Depression OB PMFSH Past Medical History Medical History Ear infection Social History Social History Alcohol intake: never Patient Tobacco Use Status: Never used Tobacco Use of substances other than those prescribed or required for medical reasons: No Advance Directives: No Advance Directives Information Provided: No Patient : Yes Meds Allergies Allergy/AdvReac Type Severity Reaction Status Date / Time No Known Allergies Allergy Verified 02/03/22 10:37 [No Known Allergies*] 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 Physical Exam Vitals Vital signs: Temp Pulse Resp BP Pulse Ox 98 F 76 16 113/76 98 02/03/22 10:04 02/03/22 10:04 02/03/22 10:04 02/03/22 10:04 02/03/22 10:04 BMI result Body Mass Index 36.3 Constitutional General Appearance: Healthy appearing, Well-nourished and Well-developed Psychiatric Mood and Affect: active and alert, normal mood and normal affect Skin Appearance: No rashes and No lesions Lungs Respiratory Effort: No intercostal retractions Auscultation: Clear to auscultation Cardiovascular Auscultation: RRR Abdomen Auscultation/Inspection/Palpation: Normal bowel sounds, Soft, Non-distended and No tenderness Female Genitalia (Pelvic) Bladder/Urethra: Normal meatus Vulva: No lesions Vagina: Nontender and No erythema Cervix: No cervical motion tenderness Adnexa/Parametria: Adnexal Tenderness: None, Adnexal Mass: None, Parametrial Te nderness: None and Parametrial Mass: None Additional Comments: Mild blood per vagina, mildly open cervix, no active bleeding 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 - Results Labs CBC & Chem 7: 02/03/22 08:33 02/03/22 08:32 Labs: Short CBC 02/03/22 Range/Units 08:33 WBC 9.4 (4.8-10.8) X10*3/uL Hgb 13.2 (12.0-16.0) g/dl Hct 41.0 (37.0-47.0) % Plt Count 279 (160-400) X10*3/uL BMP 02/03/22 08:32 Sodium 139 Potassium 4.0 Chloride 108 Carbon Dioxide 21 L BUN 10 Creatinine 0.66 Calcium 9.3 Liver Function 02/03/22 Range/Units 08:32 Total Bilirubin 0.4 (0.0-1.0) mg/dL Direct Bilirubin 0.2 (0.0-0.5) mg/dL AST 13 (5-31) U/L ALT 22 (0-31) U/L Alkaline Phosphatase 82 (39-117) U/L Albumin 4.2 (3.5-5.0) g/dL Imaging US - abdomen: Radiologist's impression: ITS Impressions Pelvic/Transvag US 02/03/22 10:25 IMPRESSION: Low-lying gestational sac compared to last study likely spontaneous in process. No pole or yolk sac seen. Thickened heterogeneous uterus measuring 1.8 cm. Left adnexal 1.8 cm cyst Assessment and Plan (1) Spontaneous : Status: Acute Discussed with the patient the result of ultrasound likely spontaneous associated with dropping hCG over the last 4 days, diagnosis of spontaneous and that the gestation is less than 70 days from LMP and by ultrasound. Options of treatment were discussed with the patient including medical termination of (including Misoprostol with Mifepristone) vs. suction dilatation and curettage.? All the pros, cons, risks and benefits were discussed with the patient. ?In addition discussed with the patient that compared with uterine aspiration, medication takes longer to complete and requires more active patient participation as the expels outside of a clinical setting. The uterine aspiration procedure for a first-trimester takes place most commonly in one visit, is slightly more effective, and allows for direct assessment of tissue by the clinician. The patient decided to go ahead with misoprostol / Mifepristone.? Discussed with the patient the risk of uterine rupture with Misoprostol.? In addition discussed with the patient the Misoprostol, have been associated with the development of congenital abnormalities including but not limited to scalp or skull defects, cranial nerve palsies (Moebius syndrome), and limb deficiencies (eg, equinovarus). The rise in uterine pressure related to uterine contractions or vascular spasm may be the mechanism contributing to these teratogenic effects. After choosing medical termination of , the steps of the procedure were reviewed, and the patient confirmed that she is willing and able to complete each step. Comprehensive counseling about the expected experience and symptoms and recovery was done. In addition, the patient was counseled that if the medication is unsuccessful, a surgical procedure, suction D&C will be required to complete the procedure, as an ongoing will have increased risk of severe abnormalities.? All questions answered, the patient v erbalized understanding agreed with the plan signed the consent. Explained to the patient that after Mifepristone is taken, but before taking Misoprostol patients do not begin to have vaginal bleeding or pelvic cramping. In most cases, if these symptoms are present, the patient should still take the misoprostol since mifepristone alone is not highly effective; the exception is that misoprostol should not be taken if expulsion of the gestation has been confirmed through an emergency visit. Approximately 1 to 5 percent of patients will expel the conceptus after a single dose of mifepristone only, without Misoprostol. Typical symptoms and the experience of passing the gestational tissue were r eviewed with the patient. Concerning symptoms to call for include but are not limited to: severe abdominal pain that persists after the tissue has passed or if pain persists and no bleeding or tissue has passed. Patients should also call if bleeding does not decrease after tissue is passed or if they are soaking two maxi pads per hour for two consecutive hours. Explained to the patient that after taking Misoprostol, the patient is likely to abort within the next several hours. The proportion of patients who abort within four hours after taking vaginal misoprostol is 93%. Also discussed with the patient the possible side effects of misoprostol including but not limited to diarrhea, nausea and vomiting, temperature elevation and signs and symptoms of incomplete .? Discussed with the patient signs and symptoms of incomplete including but not limited to: cramping, heavy bleeding, and passage of blood clots. If the patient does not does not pass any products of conception, the patient was asked to call will proceed with suction D&C. All questions answered, the patient verbalized understanding. GC and chlamydia taken, BV panel and Trichomonas were collected, Instructions given to the patient to Instructed the patient to start with the protocol Mifepristone 200 mg (lot number [id number], given to the patient) ?followed by in 24 hours by misoprostol 800 mcg per vagina. Motrin 600 mg po q 4 as needed for pain, call if temp>100.4, severe abdominal pain, heavy vaginal bleeding.? Follow-up in 2 weeks with HCG quantitative in case of successful passing of products conception as expected. She was give our office phone number schedule a follow-up appointment I spent a total of 35 minutes reviewing the chart, counseling and examine the patient and documenting in the medical record
[2022-02-03 18:45] LABS: CT PCR NOT DETECTED (Not Detect.); NG PCR NOT DETECTED (Not Detect.)
[2022-02-04 11:16] LABS: BV Int Neg Control Negative (Negative); BV Int Pos Control Positive (Positive)
== END 2022-02-03 14:01 | disposition home or self-care (01) ==
PROVIDERS: Obstetrics & Gynecology; Emergency Provider Emergency Medicine
DX: O03.9 Complete or unspecified spontaneous abortion without complication (principal); Z3A.01 Less than 8 weeks gestation of pregnancy
CPT/HCPCS: 36415; 76801; 76817; 80048; 80076; 84702; 85025; 86900; 86901; 87480; 87491; 87510; 87591; 87660; 96372; 99284; J2790

== ENCOUNTER → 2022-02-16 14:07 | Outpatient (BNVA) | payer OTHER, SELFPAY | PROVIDERS: Visit Provider Obstetrics & Gynecology | DX: O03.9 Complete or unspecified spontaneous abortion without complication (principal) | CPT/HCPCS: 99212 ==

== ENCOUNTER 2022-03-02 16:24 | Outpatient (REF) | payer OTHER, SELFPAY ==
[2022-03-02 17:48] LABS: HCG Quantitative < 2 mIU/mL
== END 2022-03-02 16:25 | disposition home or self-care (01) ==
LOC: HO.LAB 16:24
PROVIDERS: Visit Provider Obstetrics & Gynecology
DX: O03.9 Complete or unspecified spontaneous abortion without complication (principal)
CPT/HCPCS: 36415; 84702

== ENCOUNTER → 2022-03-03 13:02 | Outpatient (BNVA) | payer OTHER, SELFPAY | PROVIDERS: Visit Provider Obstetrics & Gynecology | DX: Z13.89 Encounter for screening for other disorder (principal) ==

== ENCOUNTER 2022-07-25 19:22 | Emergency (ER) | payer OTHER, SELFPAY ==
--- NOTE | ~2022-07-25 | US_ITS ---
EXAMINATION: US OBSTETRICAL ULTRASOUND CLINICAL INFORMATION: Vaginal bleeding COMPARISON: 02/03/2022. LMP: 06/12/2022. Gestational age by maternal dates is 6 weeks 1 day. Estimated date of delivery by maternal dates is 03/19/2023. TECHNIQUE: Ultrasound of the maternal pelvis is performed using transabdominal and transvaginal transducers. Transvaginal imaging is performed due to inadequate visualization transabdominally. M-mode Doppler is also performed. FINDINGS: There is a single intrauterine gestational sac with visible yolk sac, embryo/fetus, and cardiac activity. There is no significant subchorionic hemorrhage or hematoma. HR: 99 beats per minute. CRL (crown rump length): 0.24 cm (5 weeks 6 days +/- 4 days). MICHA (estimated date of delivery): 03/21/2023 +/- 4 days. MATERNAL ADNEXA: The right maternal ovary (only seen transabdominally) measures 3.0 x 1.6 x 1.7 cm. No adnexal mass seen. The left maternal ovary (only seen transabdominally) measures 2.2 x 1.2 x 1.3 cm. No adnexal mass seen. There is no significant maternal adnexal mass. No maternal pelvic ascites. US/US OB pelvic and transvaginal IMPRESSION: 1. Single intrauterine gestation with ultrasound gestational age of 5 weeks 6 days +/- 4 days. 2. Estimated date of delivery is 03/21/2023 +/- 4 days. 3. No maternal adnexal mass or pelvic ascites.
[2022-07-25 19:26] VITALS: BP 134/80; PULSE 93; RESP 18; TEMP 36.2; O2SAT 99; BMI 33.3
[2022-07-25 19:45] LABS: MANUAL DIFF FLAG NO
[2022-07-25 19:47] LABS: Appearance Urine Clear; Color Urine Yellow; Glucose Urine UA Negative (Negative); Leukocyte Esterase Urine Negative (Negative); Nitrite Urine Negative (Negative); Specific Gravity - Urine 1.025 (1.005-1.025); UMIC TRIGGER UACC YES; Urine Blood Moderate (2+) (Negative); Urine Ketones Negative (Negative); Urine Protein Negative (Neg-Trace)
[2022-07-25 19:52] LABS: Bacteria Urine None Seen (None Seen); Hyaline Casts Urine 0-2 /LPF (0-2); RBC Urine >20 /HPF (0-2); Squamous Epithelial Cell Urine 0-2 /HPF (0-2); WBC Urine 0-5 /HPF (0-5)
[2022-07-25 19:57] LABS: UPreg QC Valid YES; Urine Pregnancy POSITIVE (NEGATIVE)
[2022-07-25 20:06] LABS: Basophils Absolute Auto 0.1 X10*3/uL (0.0-0.2); Basophils Percent Auto 0.6 % (0-2); Eosinophils Absolute Auto 0.2 X10*3/uL (0.0-0.4); Eosinophils Percent Auto 1.9 % (0-4); Hematocrit 41.3 % (37.0-47.0); Hemoglobin 13.4 g/dl (12.0-16.0); Imm Gran Abs Auto 0.06 X10*3/uL (0.00-0.03); Imm Gran Pct Auto 0.6 % (0.0-0.4); Lymphocytes Absolute Auto 3.2 X10*3/uL (1.2-4.9); Lymphocytes Percent Auto 29.8 % (20-40); Mean Corpuscular HGB Conc 32.4 g/dl (31.0-35.0); Mean Corpuscular Hemoglobin 25.1 pg (27.0-33.0); Mean Corpuscular Volume 77.3 fL (80.0-98.0); Mean Platelet Volume 11.8 fL (9.4-12.3); Monocytes Absolute Auto 0.8 X10*3/uL (0.1-1.2); Monocytes Percent Auto 7.3 % (2-11); Neutrophils Absolute Auto 6.4 x10*3/uL (2.0-8.3); Neutrophils Percent Auto 59.8 % (45-73); Platelet Count 318 X10*3/uL (160-400); Red Blood Count 5.34 X10*6/uL (4.20-5.50); Red Cell Distribution Width 13.3 % (11.0-16.0); White Blood Count 10.7 X10*3/uL (4.8-10.8)
[2022-07-25 20:09] LABS: Alanine Aminotransferase 16 U/L (0-31); Albumin Level 4.1 g/dL (3.5-5.0); Alkaline Phosphatase 83 U/L (39-117); Anion Gap 15 (12-20); Aspartate Amino Transferase 12 U/L (5-31); Bilirubin Direct < 0.2 mg/dL (0.0-0.5); Bilirubin Total 0.3 mg/dL (0.0-1.0); Blood Urea Nitrogen 12 mg/dL (9-16); Calcium 9.3 mg/dL (8.4-10.2); Carbon Dioxide 23 mmol/L (22-29); Chloride 105 mmol/L (96-108); Creatinine Clr Calc Pharmacy 77.3; Estimated Glomerular Filt Rate > 60; Glucose Random 96 mg/dL (60-115); Potassium 3.9 mmol/L (3.3-5.1); Sodium 139 mmol/L (135-145); Total Protein 6.8 g/dL (6.5-8.0)
[2022-07-25 20:35] LABS: HCG Quantitative 19577 mIU/mL
[2022-07-25 23:58] VITALS: BP 124/54; PULSE 68; RESP 18; TEMP 36.1; O2SAT 98
--- NOTE | 2022-07-26 01:15 | ED.GENADULT ---
HPI - General Adult General Chief complaint: Vaginal Bleeding Stated complaint: and vaginal bleeding Time Seen by Provider: 07/25/22 23:19 Source: patient Limitations: no limitations History of Present Illness HPI narrative: this is a 22-year-old female who is 2, para 0, having had 1 prior miscarriage, who began having some vaginal spotting noted when she wiped today. She denies any heavy bleeding or pelvic cramping. She has mild low back pain. She denies any fever, nausea vomiting, dizziness, abdominal pain. Related Data Allergies Allergy/AdvReac Type Severity Reaction Status Date / Time No Known Allergies Allergy Verified 02/16/22 14:15 [No Known Allergies*] Review of Systems Review of Systems: Yes all other systems are reviewed and are negative Constitutional: Constitutional: Reports as per HPI and Denies fever(s) Eyes: Eyes: Reports as per HPI and Reports no additional eye complaints ENT: Reports system reviewed and no additional complaints, except as documented, Reports as per HPI, Denies nasal congestion, Denies nasal discharge and Denies sore throat Cardiovascular: Cardiovascular: Reports as per HPI, Denies chest pain and Denies dyspnea Respiratory: Respiratory: Reports as per HPI, Denies cough and Denies dyspnea Gastrointestinal: Gastrointestinal: Reports as per HPI, Denies abdominal pain, Denies diarrhea and Denies vomiting Genitourinary: Genitourinary: Reports as per HPI, Denies hematuria, Denies urinary frequency, Denies dysuria and Reports other ( Vaginal bleeding /spotting) Musculoskeletal: Musculoskeletal: Reports no additional musculoskeletal complaints and Denies numbness Integumentary/Breasts: Skin/Breast: Reports as per HPI and Denies rash Neurologic: Reports as per HPI, Denies focal weakness and Denies numbness Psychiatric: Psychiatric: Reports no additional psychiatric complaints and Reports as per HPI Endocrine: Endocrine: Reports no additional endocrine complaints and Reports as per HPI Hematologic/Lymphatic: Hematologic/Lymphatic: Reports no additional hematologic/lymphatic complaints, Reports as per HPI and Reports other (No peripheral edema) [facility] Past Medical History Medical History Ear infection Surgical History History of placement of ear tubes Social History Social History Alcohol intake: never Patient Tobacco Use Status: Never used Tobacco Advance Directives: No Advance Directives Information Provided: Yes Physical Exam ED Vital Signs: Vital Signs - 24 hr 07/25/22 19:26 07/25/22 23:58 Temperature 97.2 F 97.0 F Pulse Rate 93 68 Respiratory Rate 18 18 Blood Pressure 134/80 124/54 L Pulse Oximetry 99 98 Oxygen Delivery Method Room Air Room Air BMI result Body Mass Index 33.3 Const General: no acute distress Orientation/consciousness: patient oriented x3 HENMT Head: Yes normal to inspection General nose exam: Normal external nose present Mouth: moist mucous membranes Throat: Yes posterior oropharynx normal, Yes tonsils normal and Yes uvula midline Eyes Eyelids: Yes eyelids normal Conjunctivae: conjunctivae normal Pupils: Equal, round and reactive pupils present Neck Neck: Yes supple Resp Effort & Inspection: normal respiratory effort Auscultation: clear to auscultation bilaterally Cardio Rate: regular rate Rhythm: regular rhythm Heart sounds: S1 normal heart sound present, S2 normal heart sound present, no gallops, no murmurs and no rubs GI Inspection: No distended Palpation (GI): Soft to palpation and nontender Auscultation: normal bowel sounds Skin General skin exam: other (Warm and dry) Neuro General: patient oriented x3 and CN's II-XI intact bilaterally Cranial nerves: Yes Equal, round and reactive pupils present Extrem General: Yes no pedal edema Psych Affect: normal affect Attitude: cooperative Medical Decision Making MDM Narrative Medical decision making narrative: Patient with vaginal spotting, approximately 6 weeks . HCG quant is around 20,000. ultrasound confirmed IUP at 5 weeks 6 days. Patient is B negative blood type, was given RhoGAM in the ED. patient is not anemic. No evidence of UTI. Patient is safe for outpatient follow-up Lab Data Lab results reviewed: Yes I reviewed the patient's lab results. Result diagrams: 07/25/22 19:39 07/25/22 19:39 Labs: Lab Results 07/25/22 07/25/22 07/25/22 Range/Units 19:39 19:39 19:39 WBC 10.7 (4.8-10.8) X10*3/uL RBC 5.34 (4.20-5.50) X10*6/uL Hgb 13.4 (12.0-16.0) g/dl Hct 41.3 (37.0-47.0) % MCV 77.3 L (80.0-98.0) fL MCH 25.1 L (27.0-33.0) pg MCHC 32.4 (31.0-35.0) g/dl RDW 13.3 (11.0-16.0) % Plt Count 318 (160-400) X10*3/uL MPV 11.8 (9.4-12.3) fL Immature Gran % (Auto) 0.6 H (0.0-0.4) % Neut % (Auto) 59.8 (45-73) % Lymph % (Auto) 29.8 (20-40) % [place] % (Auto) 7.3 (2-11) % Eos % (Auto) 1.9 (0-4) % Baso % (Auto) 0.6 (0-2) % Lymph # (Auto) 3.2 (1.2-4.9) X10*3/uL [place] # (Auto) 0.8 (0.1-1.2) X10*3/uL Eos # (Auto) 0.2 (0.0-0.4) X10*3/uL Baso # (Auto) 0.1 (0.0-0.2) X10*3/uL Abs Immat Gran (auto) 0.06 H (0.00-0.03) X10*3/uL Absolute Neuts (auto) 6.4 (2.0-8.3) x10*3/uL Absolute Nucleated RBC 0.000 (0.0-0.012) X10*3/uL Nucleated RBC % (auto) 0.0 (0.0-0.2) /100WBC Sodium 139 (135-145) mmol/L Potassium 3.9 (3.3-5.1) mmol/L Chloride 105 (96-108) mmol/L Carbon Dioxide 23 (22-29) mmol/L Anion Gap 15 (12-20) BUN 12 (9-16) mg/dL Creatinine 0.99 (0.5-1.4) mg/dL Estim Creat Clear Calc 77.3 Estimated GFR > 60 Random Glucose 96 (60-115) mg/dL Calcium 9.3 (8.4-10.2) mg/dL Total Bilirubin 0.3 (0.0-1.0) mg/dL Direct Bilirubin < 0.2 (0.0-0.5) mg/dL AST 12 (5-31) U/L ALT 16 (0-31) U/L Alkaline Phosphatase 83 (39-117) U/L Total Protein 6.8 (6.5-8.0) g/dL Albumin 4.1 (3.5-5.0) g/dL Beta HCG, Quant 21589 mIU/mL Urine Color Urine Appearance Urine pH (5.0-9.0) Ur Specific [place] (1.005-1.025) Urine Protein (Neg-Trace) mg/dL Urine Glucose (UA) (Negative) mg/dL Urine Ketones (Negative) mg/dL Urine Blood (Negative) Urine Nitrite (Negative) Ur Leukocyte Esterase (Negative) Urine RBC (0-2) /HPF Urine WBC (0-5) /HPF Ur Squamous Epith Cells (0-2) /HPF Urine Bacteria (None Seen) Hyaline Casts (0-2) /LPF Urine Test (NEGATIVE) 07/25/22 07/25/22 Range/Units 19:39 19:39 WBC (4.8-10.8) X10*3/uL RBC (4.20-5.50) X10*6/uL Hgb (12.0-16.0) g/dl Hct (37.0-47.0) % MCV (80.0-98.0) fL MCH (27.0-33.0) pg MCHC (31.0-35.0) g/dl RDW (11.0-16.0) % Plt Count (160-400) X10*3/uL MPV (9.4-12.3) fL Immature Gran % (Auto) (0.0-0.4) % Neut % (Auto) (45-73) % Lymph % (Auto) (20-40) % [place] % (Auto) (2-11) % Eos % (Auto) (0-4) % Baso % (Auto) (0-2) % Lymph # (Auto) (1.2-4.9) X10*3/uL [place] # (Auto) (0.1-1.2) X10*3/uL Eos # (Auto) (0.0-0.4) X10*3/uL Baso # (Auto) (0.0-0.2) X10*3/uL Abs Immat Gran (auto) (0.00-0.03) X10*3/uL Absolute Neuts (auto) (2.0-8.3) x10*3/uL Absolute Nucleated RBC (0.0-0.012) X10*3/uL Nucleated RBC % (auto) (0.0-0.2) /100WBC Sodium (135-145) mmol/L Potassium (3.3-5.1) mmol/L Chloride (96-108) mmol/L Carbon Dioxide (22-29) mmol/L Anion Gap (12-20) BUN (9-16) mg/dL Creatinine (0.5-1.4) mg/dL Estim Creat Clear Calc Estimated GFR Random Glucose (60-115) mg/dL Calcium (8.4-10.2) mg/dL Total Bilirubin (0.0-1.0) mg/dL Direct Bilirubin (0.0-0.5) mg/dL AST (5-31) U/L ALT (0-31) U/L Alkaline Phosphatase (39-117) U/L Total Protein (6.5-8.0) g/dL Albumin (3.5-5.0) g/dL Beta HCG, Quant mIU/mL Urine Color Yellow Urine Appearance Clear Urine pH 6.0 (5.0-9.0) Ur Specific [place] 1.025 (1.005-1.025) Urine Protein Negative (Neg-Trace) mg/dL Urine Glucose (UA) Negative (Negative) mg/dL Urine Ketones Negative (Negative) mg/dL Urine Blood Moderate (2+) H (Negative) Urine Nitrite Negative (Negative) Ur Leukocyte Esterase Negative (Negative) Urine RBC >20 H (0-2) /HPF Urine WBC 0-5 (0-5) /HPF Ur Squamous Epith Cells 0-2 (0-2) /HPF Urine Bacteria None Seen (None Seen) Hyaline Casts 0-2 (0-2) /LPF Urine Test POSITIVE H (NEGATIVE) Imaging Data transvaginal pelvic ultrasound: Radiologist's impression: IMPRESSION: 1. Single intrauterine gestation with ultrasound gestational age of? 5 weeks 6 days +/- 4 days. 2. Estimated date of delivery is 03/21/2023 +/- 4 days. 3. No maternal adnexal mass or pelvic ascites. Discharge Plan Discharge Clinical Impression: Miscarriage, threatened, early Patient Disposition: Home, Self-Care Instructions: Threatened Miscarriage (ED) Additional Instructions: Avoid any strenuous activity, as well as sexual intercourse. Follow-up with your OBGYN. Return for any new or worsened symptoms. Your ultrasound showed your approximately 5 weeks, 6 days, in your uterus. Your bleeding is light and may resolve, and he may continue with a normal . However it is possible this represents an early sign of miscarriage.
[2022-07-26] MEDS: Rho(D) Immune Globulin 300 MCG SYRINGE IM (01:46)
== END 2022-07-26 02:06 | disposition home or self-care (01) ==
PROVIDERS: Emergency Provider Emergency Medicine
DX: O20.0 Threatened abortion (principal); Z3A.01 Less than 8 weeks gestation of pregnancy; Z79.899 Other long term (current) drug therapy
CPT/HCPCS: 36415; 76801; 76817; 80053; 81001; 81025; 82248; 84702; 85025; 96372; 99282; 99284; J2790

== ENCOUNTER 2023-01-05 09:36 | Emergency (ER) | payer OTHER, SELFPAY ==
--- NOTE | ~2023-01-05 | US_ITS ---
EXAMINATION: US ABDOMEN LIMITED CLINICAL INFORMATION: Right upper quadrant pain with elevated alkaline phosphatase. COMPARISON: None TECHNIQUE: Real-time imaging of the right upper quadrant abdominal viscera. FINDINGS: PANCREAS: The pancreas appears unremarkable, without masses or ductal dilatation, with the exception of the tail which is obscured by bowel gas. LIVER: The liver is normal in size. The liver contour is normal. Parenchymal echogenicity is normal. No focal hepatic lesion. There is no intrahepatic biliary duct dilatation seen. GALLBLADDER: Multiple gallstones are seen in the gallbladder. No pericholecystic fluid seen. Priest's sign is positive COMMON BILE DUCT: Normal in caliber measuring 0.3 cm in diameter. RIGHT KIDNEY: Normal. No hydronephrosis. No renal calculi or focal parenchymal lesions. The kidney measures 12.0 cm in maximum dimension. FREE FLUID: None. US/US abdomen limited IMPRESSION: Cholelithiasis with positive Priest's sign.
--- NOTE | ~2023-01-05 | US_ITS ---
EXAMINATION: ULTRASOUND OB LIMITED CLINICAL INFORMATION: Abdominal pain. care at [facility]. COMPARISON: Ultrasound OB pelvis 07/25/2022. TECHNIQUE: Transabdominal imaging of pelvis is performed. FINDINGS: There is a single intrauterine fetus with a heart rate of 128 bpm. There is adequate amniotic fluid. The fetus is in cephalic presentation with anterior placenta. MEASUREMENTS: Biparietal diameter measures 7.61 cm corresponding to 30 weeks 4 days. Occipital frontal diameter measures 9.95 cm corresponding to 30 weeks and 6 days. Head circumference measures 28.04 cm corresponding to 30 weeks 6 days. Abdominal circumference measures 24.09 cm corresponding to 29 weeks 3 days. Femoral length measures 5.69 cm corresponding to 29 weeks 6 days. The composite gestational age from today's measurements is 30 weeks and 2 days. Gestational age from earliest ultrasound is 29 weeks and 4 days. From today's measurements the MICHA is 03/14/2023. Biophysical profile is 8/8. Amniotic fluid index is 21.03. On anatomy kidneys, bladder, stomach and a four-chamber heart was visualized. US/US OB limited IMPRESSION: Single live intrauterine fetus in cephalic presentation and anterior placenta. The ultrasound gestational age corresponds to 30 weeks and 2 days with an MICHA of 03/14/2023. Biophysical profile is 8/8.
[2023-01-05 10:07] VITALS: BP 128/66; PULSE 82; RESP 16; TEMP 36.4; O2SAT 96; BMI 35.5
--- NOTE | 2023-01-05 10:13 | ED.GENADULT ---
HPI - General Adult General Chief complaint: General Medical <Adrian Hamm - Last Filed: 01/05/23 10:14> Stated complaint: , dizzy <Adrian Hamm - Last Filed: 01/05/23 10:14> Time Seen by Provider: 01/05/23 16:47 <Adrian Hamm - Last Filed: 01/05/23 10:14> Source: patient <Niyah Alba NP - Last Filed: 01/05/23 23:57> Mode of arrival: ambulatory <Niyah Alba NP - Last Filed: 01/05/23 23:57> Limitations: no limitations <Niyah Alba NP - Last Filed: 01/05/23 23:57> History of Present Illness HPI narrative: 22-year-old female presents for a syncopal episode with vomiting yesterday, and dizziness today. She has some lower abdominal pain. Is 29 weeks . Does not report any vaginal discharge or cramping consistent contractions. <Niyah Alba NP - Last Filed: 01/05/23 23:57> Onset (ago): day(s) (2) <Niyah Alba NP - Last Filed: 01/05/23 23:57> Radiation: non-radiation <Niyah Alba NP - Last Filed: 01/05/23 23:57> Severity: mild <Niyah Alba NP - Last Filed: 01/05/23 23:57> Severity scale (1-10): 2 <Niyah Alba NP - Last Filed: 01/05/23 23:57> Quality: aching <Niyah Alba NP - Last Filed: 01/05/23 23:57> Pain Consistency: constant <Niyah Alba NP - Last Filed: 01/05/23 23:57> Relieving factors: none <Niyah Alba NP - Last Filed: 01/05/23 23:57> Associated symptoms: nausea/vomiting and syncope <Niyah Alba NP - Last Filed: 01/05/23 23:57> Treatments prior to arrival: none <Niyah Alab NP - Last Filed: 01/05/23 23:57> Related Data Allergies/adverse reactions: Allergies Allergy/AdvReac Type Severity Reaction Status Date / Time No Known Allergies Allergy Verified 02/16/22 14:15 [No Known Allergies*] <Adrian Hamm - Last Filed: 01/05/23 10:14> Review of Systems Review of Systems: Constitutional: No Fever, No Chills, positive syncope Cardiovascular: No Chest Pain, No SOB Respiratory: No Cough, No Dyspnea Gastrointestinal: No Nausea, No Vomiting, No Diarrhea, No abdominal Pain Genitourinary: Positive , positive lower abdominal pain, No Dysuria, No Hematuria Musculoskeletal: No joint pain, No Myalgias, No Joint Swelling Skin: No Skin lacerations, No rash Neuro: No Weakness, No Numbness, No Paresthesias, No Loss of Consciousness, positive Dizziness, No Headache <Niyah Alba NP - Last Filed: 01/05/23 23:57> Yes all other systems are reviewed and are negative <Niyah Alba NP - Last Filed: 01/05/23 23:57> [facility], [facility] Past Medical History Attestation statement: The following information was validated with the patient. <Niyah Alba NP - Last Filed: 01/05/23 23:57> Source: old records reviewed <Niyah Alba NP - Last Filed: 01/05/23 23:57> Medical History: Medical History Ear infection <Adrian Hamm - Last Filed: 01/05/23 10:14> Surgical History: Surgical History History of placement of ear tubes <Adrian Hamm - Last Filed: 01/05/23 10:14> Social History Social History: Social History Alcohol intake: never Patient Tobacco Use Status: Never used Tobacco Smoked in Last 30 Days: No Use of substances other than those prescribed or required for medical reasons: No Advance Directives: No Patient : Yes <Adrian Hamm - Last Filed: 01/05/23 10:14> Physical Exam ED Vital Signs: Vital Signs - 24 hr 01/05/23 10:07 01/05/23 16:44 01/05/23 16:47 Temperature 97.6 F 98.0 F Pulse Rate 82 76 75 Respiratory Rate 16 18 Blood Pressure 128/66 116/68 112/65 Pulse Oximetry 96 99 Oxygen Delivery Method Room Air Room Air 01/05/23 16:47 01/05/23 16:50 01/05/23 21:15 Temperature 98.4 F Pulse Rate 96 116 H 87 Respiratory Rate 16 Blood Pressure 119/79 160/84 H 128/70 Pulse Oximetry 98 Oxygen Delivery Method Room Air 01/05/23 22:58 Temperature Pulse Rate 88 Respiratory Rate 18 Blood Pressure 125/76 Pulse Oximetry 99 Oxygen Delivery Method Room Air BMI result Body Mass Index 35.5 <Adrian Hamm - Last Filed: 01/05/23 10:14> Vital Signs - 24 hr 01/05/23 10:07 01/05/23 16:44 01/05/23 16:47 Temperature 97.6 F 98.0 F Pulse Rate 82 76 75 Respiratory Rate 16 18 Blood Pressure 128/66 116/68 112/65 Pulse Oximetry 96 99 Oxygen Delivery Method Room Air Room Air 01/05/23 16:47 01/05/23 16:50 01/05/23 21:15 Temperature 98.4 F Pulse Rate 96 116 H 87 Respiratory Rate 16 Blood Pressure 119/79 160/84 H 128/70 Pulse Oximetry 98 Oxygen Delivery Method Room Air 01/05/23 22:58 Temperature Pulse Rate 88 Respiratory Rate 18 Blood Pressure 125/76 Pulse Oximetry 99 Oxygen Delivery Method Room Air BMI result Body Mass Index 35.5 <Niyah Alba NP - Last Filed: 01/05/23 23:57> Appearance: Alert. Oriented X3. No acute distress. Eyes: Pupils equal, round and reactive to light. ENT: Pharynx normal. Neck: Normal inspection. Neck supple. CVS: Normal heart rate and rhythm. Pulses normal. Respiratory: No respiratory distress. Breath sounds normal. Abdomen: Soft and gravid. Positive Priest sign. Skin: Skin warm and dry. Normal skin color. Normal skin turgor. Extremities: No lower extremity edema. Gait balance and coordinated. Neuro: No motor deficit. No sensory deficit. Cranial nerves 2-12 intact. <Niyah Alba NP - Last Filed: 03/02/23 23:57> Course Course Course Narrative: RME- 22-year-old female with approximately 29 weeks and evaluation of dizziness. Patient reports vomiting once yesterday after eating something that she felt did not agree with her. She reports having dizziness yesterday and again today when she woke up. Denies any abdominal pain, pelvic cramping, vaginal bleeding or discharge. She denies any chest pain. She did feel as if her heart was racing earlier today when standing up. Vital signs are stable on arrival. Plan for basic labs, orthostatic vital signs and further workup as indicated <Adrian Hamm - Last Filed: 01/05/23 10:14> RME- 22-year-old female with approximately 29 weeks and evaluation of dizziness. Patient reports vomiting once yesterday after eating something that she felt did not agree with her. She reports having dizziness yesterday and again today when she woke up. Denies any abdominal pain, pelvic cramping, vaginal bleeding or discharge. She denies any chest pain. She did feel as if her heart was racing earlier today when standing up. Vital signs are stable on arrival. Plan for basic labs, orthostatic vital signs and further workup as indicated 22-year-old female 2 para 1 miscarriage 1, 29 weeks of gestation with a normal so far, presents for evaluation of dizziness, near syncopal episodes, and lower abdominal discomfort. 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 States she passed out yesterday while at home. After passing out, she vomited and felt better. She does not report any vaginal bleeding, abdominal cramping consistent with contractions, is sexually active but denies risk for sexually transmitted infection. Labs completed while she was in the emergency department waiting room. CBC is consistent with , chemistries indicate elevated alk-phos at 01:57. Patient does have positive Priest sign on physical exam. Will order ultrasound. Considering patient is 29 weeks, will order obstetric ultrasound limited. 19:00 ultrasound indicates cholelithiasis without cholecystitis. Obstetric ultrasound is still pending. Urinalysis indicates positive leukocyte esterase. Patient states that she does not take pills because she cannot tolerate swallowing them. 21:59 obstetric ultrasound still pending read. 22:15 obstetric ultrasound shows single live intrauterine fetus in cephalic presentation an anterior placenta. Biophysical profile 06/13. [place] text discussion with Dr. Barkley. 22:[address] Barkley via telephone, plan of care is for patient to be transferred to acute care facility for monitoring. Patient has had elevated blood pressure 160/84, in conjunction with syncope, vomiting, and UTI with abdominal pressure Cannot rule out labor or deceleration. Patient requires a higher level of care that cannot be completed at this facility. We do not have OBGYN or birthing unit here. I did discuss this with the patient who agrees to transfer. 23:49 discussion with [facility], plan of care is for transfer for monitoring. Discussion with OB resident, plan is for ceftriaxone for UTI as patient will not swallow pills. <Niyah Alba NP - Last Filed: 01/05/23 23:57> Consultations Consultation #1: Rubia <Niyah Alba NP - Last Filed: 01/05/23 23:57> Time: 22:15 <Niyah Alba NP - Last Filed: 01/05/23 23:57> Consultation #2: Satish <Niyah Alba [employer] - Last Filed: 01/05/23 23:57> Time: 23:49 <Niyah Alba NP - Last Filed: 01/05/23 23:57> Medications Administered Discontinued Medications Generic Name Dose Route Start Last Admin Trade Name Freq PRN Reason Stop Dose Admin Sodium Chloride 1,000 mls @ 999 mls/hr 01/05/23 17:00 01/05/23 20:10 Ns IVCONT 01/05/23 18:00 Infused .Q1H1M SHEFALI Infusion <Adrian Hamm - Last Filed: 01/05/23 10:14> Medications Administered Discontinued Medications Generic Name Dose Route Start Last Admin Trade Name Freq PRN Reason Stop Dose Admin Sodium Chloride 1,000 mls @ 999 mls/hr 01/05/23 17:00 01/05/23 20:10 Ns IVCONT 01/05/23 18:00 Infused .Q1H1M SHEFALI Infusion <Niyah Alba NP - Last Filed: 01/05/23 23:57> Medical Decision Making Differential Diagnosis Differential Diagnoses: The differential diagnosis associated with the presentation includes <Niyah Alba NP - Last Filed: 01/05/23 23:57> Pre term labor, demise <Niyah Alba NP - Last Filed: 01/05/23 23:57> Admission/Observation Consideration of admission/observation: Escalation of care including admission/observation considered <Niyah Alba NP - Last Filed: 01/05/23 23:57> Consult Healthcare Provider Management of the patient was discussed with: Basket Mender <Niyah Alba NP - Last Filed: 01/05/23 23:57> Dr. Barkley <Niyah Alba NP - Last Filed: 01/05/23 23:57> Lab Data MDM Lab Attestation statement: I reviewed the patient's lab results. <Niyah Alba NP - Last Filed: 01/05/23 23:57> Result Diagrams: 01/05/23 10:58 01/05/23 10:58 <Adrian Hamm - Last Filed: 01/05/23 10:14> Labs: Lab Results 01/05/23 01/05/23 01/05/23 Range/Units 10:58 10:58 17:08 WBC 10.0 (4.8-10.8) X10*3/uL RBC 4.59 (4.20-5.50) X10*6/uL Hgb 11.6 L (12.0-16.0) g/dl Hct 35.9 L (37.0-47.0) % MCV 78.2 L (80.0-98.0) fL MCH 25.3 L (27.0-33.0) pg MCHC 32.3 (31.0-35.0) g/dl RDW 13.2 (11.0-16.0) % Plt Count 226 D (160-400) X10*3/uL MPV 11.7 (9.4-12.3) fL Immature Gran % (Auto) 0.4 (0.0-0.4) % Neut % (Auto) 71.2 (45-73) % Lymph % (Auto) 19.3 L (20-40) % [place] % (Auto) 7.8 (2-11) % Eos % (Auto) 0.7 (0-4) % Baso % (Auto) 0.6 (0-2) % Lymph # (Auto) 1.9 (1.2-4.9) X10*3/uL [place] # (Auto) 0.8 (0.1-1.2) X10*3/uL Eos # (Auto) 0.1 (0.0-0.4) X10*3/uL Baso # (Auto) 0.1 (0.0-0.2) X10*3/uL Abs Immat Gran (auto) 0.04 H (0.00-0.03) X10*3/uL Absolute Neuts (auto) 7.1 (2.0-8.3) x10*3/uL Absolute Nucleated RBC 0.000 (0.0-0.012) X10*3/uL Nucleated RBC % (auto) 0.0 (0.0-0.2) /100WBC Sodium 137 (135-145) mmol/L Potassium 3.8 (3.3-5.1) mmol/L Chloride 106 (96-108) mmol/L Carbon Dioxide 23 (22-29) mmol/L Anion Gap 12 (12-20) BUN 7 L (9-16) mg/dL Creatinine 0.60 (0.5-1.4) mg/dL Estim Creat Clear Calc 126.4 Estimated GFR > 60 Random Glucose 76 (60-115) mg/dL Calcium 8.7 D (8.4-10.2) mg/dL Total Bilirubin 0.4 (0.0-1.0) mg/dL AST 17 (5-31) U/L ALT 27 (0-31) U/L Alkaline Phosphatase 157 H (39-117) U/L Total Protein 6.0 L (6.5-8.0) g/dL Albumin 3.3 L (3.5-5.0) g/dL Urine Color Urine Appearance Urine pH (5.0-9.0) Ur Specific [place] (1.005-1.025) Urine Protein (Neg-Trace) mg/dL Urine Glucose (UA) (Negative) mg/dL Urine Ketones (Negative) mg/dL Urine Blood (Negative) Urine Nitrite (Negative) Ur Leukocyte Esterase (Negative) Urine RBC (0-2) /HPF Urine WBC (0-5) /HPF Ur Squamous Epith Cells (0-2) /HPF Urine Bacteria (None Seen) Hyaline Casts (0-2) /LPF Influenza Type A (PCR) NEGATIVE (Negative) Influenza Type B (PCR) NEGATIVE (Negative) RSV RNA Qual (PCR) NEGATIVE (Negative) SARS-CoV-2 RNA (RT-PCR) NEGATIVE (Negative) 01/05/23 Range/Units 20:20 WBC (4.8-10.8) X10*3/uL RBC (4.20-5.50) X10*6/uL Hgb (12.0-16.0) g/dl Hct (37.0-47.0) % MCV (80.0-98.0) fL MCH (27.0-33.0) pg MCHC (31.0-35.0) g/dl RDW (11.0-16.0) % Plt Count (160-400) X10*3/uL MPV (9.4-12.3) fL Immature Gran % (Auto) (0.0-0.4) % Neut % (Auto) (45-73) % Lymph % (Auto) (20-40) % [place] % (Auto) (2-11) % Eos % (Auto) (0-4) % Baso % (Auto) (0-2) % Lymph # (Auto) (1.2-4.9) X10*3/uL [place] # (Auto) (0.1-1.2) X10*3/uL Eos # (Auto) (0.0-0.4) X10*3/uL Baso # (Auto) (0.0-0.2) X10*3/uL Abs Immat Gran (auto) (0.00-0.03) X10*3/uL Absolute Neuts (auto) (2.0-8.3) x10*3/uL Absolute Nucleated RBC (0.0-0.012) X10*3/uL Nucleated RBC % (auto) (0.0-0.2) /100WBC Sodium (135-145) mmol/L Potassium (3.3-5.1) mmol/L Chloride (96-108) mmol/L Carbon Dioxide (22-29) mmol/L Anion Gap (12-20) BUN (9-16) mg/dL Creatinine (0.5-1.4) mg/dL Estim Creat Clear Calc Estimated GFR Random Glucose (60-115) mg/dL Calcium (8.4-10.2) mg/dL Total Bilirubin (0.0-1.0) mg/dL AST (5-31) U/L ALT (0-31) U/L Alkaline Phosphatase (39-117) U/L Total Protein (6.5-8.0) g/dL Albumin (3.5-5.0) g/dL Urine Color Yellow Urine Appearance Clear Urine pH 8.0 (5.0-9.0) Ur Specific [place] 1.015 (1.005-1.025) Urine Protein Negative (Neg-Trace) mg/dL Urine Glucose (UA) Negative (Negative) mg/dL Urine Ketones Negative (Negative) mg/dL Urine Blood Negative (Negative) Urine Nitrite Negative (Negative) Ur Leukocyte Esterase Trace H (Negative) Urine RBC 0-2 (0-2) /HPF Urine WBC 0-5 (0-5) /HPF Ur Squamous Epith Cells 3-5 (0-2) /HPF Urine Bacteria 1+ (None Seen) Hyaline Casts 0-2 (0-2) /LPF Influenza Type A (PCR) (Negative) Influenza Type B (PCR) (Negative) RSV RNA Qual (PCR) (Negative) SARS-CoV-2 RNA (RT-PCR) (Negative) <Adrian Hamm - Last Filed: 01/05/23 10:14> Lab Results 01/05/23 01/05/23 01/05/23 Range/Units 10:58 10:58 17:08 WBC 10.0 (4.8-10.8) X10*3/uL RBC 4.59 (4.20-5.50) X10*6/uL Hgb 11.6 L (12.0-16.0) g/dl Hct 35.9 L (37.0-47.0) % MCV 78.2 L (80.0-98.0) fL MCH 25.3 L (27.0-33.0) pg MCHC 32.3 (31.0-35.0) g/dl RDW 13.2 (11.0-16.0) % Plt Count 226 D (160-400) X10*3/uL MPV 11.7 (9.4-12.3) fL Immature Gran % (Auto) 0.4 (0.0-0.4) % Neut % (Auto) 71.2 (45-73) % Lymph % (Auto) 19.3 L (20-40) % [place] % (Auto) 7.8 (2-11) % Eos % (Auto) 0.7 (0-4) % Baso % (Auto) 0.6 (0-2) % Lymph # (Auto) 1.9 (1.2-4.9) X10*3/uL [place] # (Auto) 0.8 (0.1-1.2) X10*3/uL Eos # (Auto) 0.1 (0.0-0.4) X10*3/uL Baso # (Auto) 0.1 (0.0-0.2) X10*3/uL Abs Immat Gran (auto) 0.04 H (0.00-0.03) X10*3/uL Absolute Neuts (auto) 7.1 (2.0-8.3) x10*3/uL Absolute Nucleated RBC 0.000 (0.0-0.012) X10*3/uL Nucleated RBC % (auto) 0.0 (0.0-0.2) /100WBC Sodium 137 (135-145) mmol/L Potassium 3.8 (3.3-5.1) mmol/L Chloride 106 (96-108) mmol/L Carbon Dioxide 23 (22-29) mmol/L Anion Gap 12 (12-20) BUN 7 L (9-16) mg/dL Creatinine 0.60 (0.5-1.4) mg/dL Estim Creat Clear Calc 126.4 Estimated GFR > 60 Random Glucose 76 (60-115) mg/dL Calcium 8.7 D (8.4-10.2) mg/dL Total Bilirubin 0.4 (0.0-1.0) mg/dL AST 17 (5-31) U/L ALT 27 (0-31) U/L Alkaline Phosphatase 157 H (39-117) U/L Total Protein 6.0 L (6.5-8.0) g/dL Albumin 3.3 L (3.5-5.0) g/dL Urine Color Urine Appearance Urine pH (5.0-9.0) Ur Specific [place] (1.005-1.025) Urine Protein (Neg-Trace) mg/dL Urine Glucose (UA) (Negative) mg/dL Urine Ketones (Negative) mg/dL Urine Blood (Negative) Urine Nitrite (Negative) Ur Leukocyte Esterase (Negative) Urine RBC (0-2) /HPF Urine WBC (0-5) /HPF Ur Squamous Epith Cells (0-2) /HPF Urine Bacteria (None Seen) Hyaline Casts (0-2) /LPF Influenza Type A (PCR) NEGATIVE (Negative) Influenza Type B (PCR) NEGATIVE (Negative) RSV RNA Qual (PCR) NEGATIVE (Negative) SARS-CoV-2 RNA (RT-PCR) NEGATIVE (Negative) 01/05/23 Range/Units 20:20 WBC (4.8-10.8) X10*3/uL RBC (4.20-5.50) X10*6/uL Hgb (12.0-16.0) g/dl Hct (37.0-47.0) % MCV (80.0-98.0) fL MCH (27.0-33.0) pg MCHC (31.0-35.0) g/dl RDW (11.0-16.0) % Plt Count (160-400) X10*3/uL MPV (9.4-12.3) fL Immature Gran % (Auto) (0.0-0.4) % Neut % (Auto) (45-73) % Lymph % (Auto) (20-40) % [place] % (Auto) (2-11) % Eos % (Auto) (0-4) % Baso % (Auto) (0-2) % Lymph # (Auto) (1.2-4.9) X10*3/uL [place] # (Auto) (0.1-1.2) X10*3/uL Eos # (Auto) (0.0-0.4) X10*3/uL Baso # (Auto) (0.0-0.2) X10*3/uL Abs Immat Gran (auto) (0.00-0.03) X10*3/uL Absolute Neuts (auto) (2.0-8.3) x10*3/uL Absolute Nucleated RBC (0.0-0.012) X10*3/uL Nucleated RBC % (auto) (0.0-0.2) /100WBC Sodium (135-145) mmol/L Potassium (3.3-5.1) mmol/L Chloride (96-108) mmol/L Carbon Dioxide (22-29) mmol/L Anion Gap (12-20) BUN (9-16) mg/dL Creatinine (0.5-1.4) mg/dL Estim Creat Clear Calc Estimated GFR Random Glucose (60-115) mg/dL Calcium (8.4-10.2) mg/dL Total Bilirubin (0.0-1.0) mg/dL AST (5-31) U/L ALT (0-31) U/L Alkaline Phosphatase (39-117) U/L Total Protein (6.5-8.0) g/dL Albumin (3.5-5.0) g/dL Urine Color Yellow Urine Appearance Clear Urine pH 8.0 (5.0-9.0) Ur Specific [place] 1.015 (1.005-1.025) Urine Protein Negative (Neg-Trace) mg/dL Urine Glucose (UA) Negative (Negative) mg/dL Urine Ketones Negative (Negative) mg/dL Urine Blood Negative (Negative) Urine Nitrite Negative (Negative) Ur Leukocyte Esterase Trace H (Negative) Urine RBC 0-2 (0-2) /HPF Urine WBC 0-5 (0-5) /HPF Ur Squamous Epith Cells 3-5 (0-2) /HPF Urine Bacteria 1+ (None Seen) Hyaline Casts 0-2 (0-2) /LPF Influenza Type A (PCR) (Negative) Influenza Type B (PCR) (Negative) RSV RNA Qual (PCR) (Negative) SARS-CoV-2 RNA (RT-PCR) (Negative) <Niyah Alba NP - Last Filed: 01/05/23 23:57> Independent Interpretation I performed an independent interpretation of an: Ultrasound <Niyah Alba NP - Last Filed: 01/05/23 23:57> Radiology Impression Discussion of test interpretation with radiology: I have reviewed the radiologist's reading. <Niyah Alba NP - Last Filed: 01/05/23 23:57> Radiologist Impression: EXAMINATION: US ABDOMEN LIMITED CLINICAL INFORMATION: Right upper quadrant pain with elevated alkaline phosphatase. COMPARISON: None TECHNIQUE: Real-time imaging of the right upper quadrant abdominal viscera. FINDINGS: PANCREAS: The pancreas appears unremarkable, without masses or ductal dilatation, with the exception of the tail which is obscured by bowel gas. LIVER: The liver is normal in size. The liver contour is normal. Parenchymal echogenicity is normal. No focal hepatic lesion. There is no intrahepatic biliary duct dilatation seen. GALLBLADDER: Multiple gallstones are seen in the gallbladder. No pericholecystic fluid seen. Priest's sign is positive COMMON BILE DUCT: Normal in caliber measuring 0.3 cm in diameter. RIGHT KIDNEY: Normal. No hydronephrosis. No renal calculi or focal parenchymal lesions. The kidney measures 12.0 cm in maximum dimension. FREE FLUID: None. US/US abdomen limited IMPRESSION: Cholelithiasis with positive Priest's sign. ? <Niyah Alba NP - Last Filed: 01/05/23 23:57> External Record Review External record reviewed: Outpatient record and Prior outpatient labs <Niyah Alba NP - Last Filed: 01/05/23 23:57> Prescription Management I considered prescription management with: Antibiotic <Niyah Alba NP - Last Filed: 01/05/23 23:57> Discharge Plan Discharge Clinical Impression: UTI (urinary tract infection), Syncope, with 29 completed weeks gestation, Hypertension <Adrian Hamm - Last Filed: 01/05/23 10:14> Patient Disposition: [facility] <Adrian Hamm - Last Filed: 01/05/23 10:14> Transfer Details: Dr. Madhavi Covarrubias <Adrian Hamm - Last Filed: 01/05/23 10:14> Dr. Madhavi Covarrubias <Niyah Alba NP - Last Filed: 01/05/23 23:57>
[2023-01-05 11:03] LABS: MANUAL DIFF FLAG NO
[2023-01-05 11:08] LABS: Basophils Absolute Auto 0.1 X10*3/uL (0.0-0.2); Basophils Percent Auto 0.6 % (0-2); Eosinophils Absolute Auto 0.1 X10*3/uL (0.0-0.4); Eosinophils Percent Auto 0.7 % (0-4); Hematocrit 35.9 % (37.0-47.0); Hemoglobin 11.6 g/dl (12.0-16.0); Imm Gran Abs Auto 0.04 X10*3/uL (0.00-0.03); Imm Gran Pct Auto 0.4 % (0.0-0.4); Lymphocytes Absolute Auto 1.9 X10*3/uL (1.2-4.9); Lymphocytes Percent Auto 19.3 % (20-40); Mean Corpuscular HGB Conc 32.3 g/dl (31.0-35.0); Mean Corpuscular Hemoglobin 25.3 pg (27.0-33.0); Mean Corpuscular Volume 78.2 fL (80.0-98.0); Mean Platelet Volume 11.7 fL (9.4-12.3); Monocytes Absolute Auto 0.8 X10*3/uL (0.1-1.2); Monocytes Percent Auto 7.8 % (2-11); Neutrophils Absolute Auto 7.1 x10*3/uL (2.0-8.3); Neutrophils Percent Auto 71.2 % (45-73); Platelet Count 226 X10*3/uL (160-400); Red Blood Count 4.59 X10*6/uL (4.20-5.50); Red Cell Distribution Width 13.2 % (11.0-16.0)
[2023-01-05 11:24] LABS: Alanine Aminotransferase 27 U/L (0-31); Albumin Level 3.3 g/dL (3.5-5.0); Alkaline Phosphatase 157 U/L (39-117); Anion Gap 12 (12-20); Aspartate Amino Transferase 17 U/L (5-31); Bilirubin Total 0.4 mg/dL (0.0-1.0); Blood Urea Nitrogen 7 mg/dL (9-16); Calcium 8.7 mg/dL (8.4-10.2); Carbon Dioxide 23 mmol/L (22-29); Chloride 106 mmol/L (96-108); Creatinine Clr Calc Pharmacy 126.4; Estimated Glomerular Filt Rate > 60; Glucose Random 76 mg/dL (60-115); Potassium 3.8 mmol/L (3.3-5.1); Sodium 137 mmol/L (135-145)
[2023-01-05 16:44] VITALS: BP 116/68; PULSE 76; RESP 18; TEMP 36.7; O2SAT 99
[2023-01-05 16:47] VITALS: BP 112/65; BP 119/79; PULSE 75; PULSE 96
[2023-01-05 16:50] VITALS: BP 160/84; PULSE 116
[2023-01-05] MEDS: 0.9 % Sodium Chloride 1,000 ML 999 ML IVCONT (18:16)
[2023-01-05 18:55] LABS: Influenza A PCR NEGATIVE (Negative); Influenza B PCR NEGATIVE (Negative); Resp Syncy Virus RNA Qual PCR NEGATIVE (Negative); SARS COV2 PCR INHOUSE NEGATIVE (Negative)
--- NOTE | 2023-01-05 20:24 | PC.NURSE ---
late entry-pt completed iv fluids. pt able to provide urine sample. partner at bedside. ambulates independently
[2023-01-05 20:27] LABS: Appearance Urine Clear; Color Urine Yellow; Glucose Urine UA Negative (Negative); Leukocyte Esterase Urine Trace (Negative); Nitrite Urine Negative (Negative); Specific Gravity - Urine 1.015 (1.005-1.025); UMIC TRIGGER UACC YES; Urine Blood Negative (Negative); Urine Ketones Negative (Negative); Urine Protein Negative (Neg-Trace)
[2023-01-05 20:48] LABS: Bacteria Urine 1+ (None Seen); Hyaline Casts Urine 0-2 /LPF (0-2); RBC Urine 0-2 /HPF (0-2); WBC Urine 0-5 /HPF (0-5)
[2023-01-05 21:15] VITALS: BP 128/70; PULSE 87; RESP 16; TEMP 36.9; O2SAT 98
--- NOTE | 2023-01-05 21:29 | PC.NURSE ---
pt reports to this rn 10/ FINNEY at this time. pt states unable to take pills orally. this rn made candy fishing guide aware. ramírez states rectal tylenol could be ordered this rn discussed with pt. pt declined medication. ramírez made aware at this time
--- NOTE | 2023-01-05 22:42 | P.CONOB_ITS ---
OB Consult Note - [facility] Data Service Date: 01/05/23 Primary Care Provider: Unknown Physician Narrative 10:32 pm I was contacted on Dalila Miller who is a 22 year old at 29 weeks of gestation who presented emergency room with history of dizziness, vomiting once yesterday postprandial.? The patient had another similar episode this diomedes ambar? Denies any abdominal pain/ cramping, no vaginal bleeding or leakage of fluid. Vital signs are stable on arrival. Blood pressure at 16:50 was 160/84 all other blood pressures are within normal prior and afterwards, last blood pressure at 21:15 was 128 /70 No headache or blurring vision Abdominal ultrasound was positive for cholelithiasis OB ultrasound showed a live intrauterine gestation with cephalic presentation at 30 weeks and 2 days of gestation, heart rate 128 beats per minute, BPP 8/8 OB PMFSH Past Medical History Medical History Ear infection Surgical History Surgical History History of placement of ear tubes Social History Social History Alcohol intake: never Patient Tobacco Use Status: Never used Tobacco Smoked in Last 30 Days: No Use of substances other than those prescribed or required for medical reasons: No Advance Directives: No Patient : Yes Meds Allergies Allergy/AdvReac Type Severity Reaction Status Date / Time No Known Allergies Allergy Verified 02/16/22 14:15 [No Known Allergies*] OB Flowsheet OB Flowsheet & Tools History 1 Elective abortions Para Spontaneous abortions Hx # Term Pregnancies Ectopic pregnancies Hx # Pregnancies Multiple births OB Physical Exam Physical Exam Additional Comments: Reported by Niyah Washington NP as the following: Abdomen: Soft and gravid.? Positive Priest sign. OB Consult Results Labs 01/05/23 10:58 01/05/23 10:58 Labs: Short CBC 01/05/23 Range/Units 10:58 WBC 10.0 (4.8-10.8) X10*3/uL Hgb 11.6 L (12.0-16.0) g/dl Hct 35.9 L (37.0-47.0) % Plt Count 226 D (160-400) X10*3/uL BMP 01/05/23 10:58 Sodium 137 Potassium 3.8 Chloride 106 Carbon Dioxide 23 BUN 7 L Creatinine 0.60 Calcium 8.7 D Liver Function 01/05/23 Range/Units 10:58 Total Bilirubin 0.4 (0.0-1.0) mg/dL AST 17 (5-31) U/L ALT 27 (0-31) U/L Alkaline Phosphatase 157 H (39-117) U/L Albumin 3.3 L (3.5-5.0) g/dL Urine 01/05/23 Range/Units 20:20 Urine Color Yellow Urine Appearance Clear Urine pH 8.0 (5.0-9.0) Ur Specific [place] 1.015 (1.005-1.025) Urine Protein Negative (Neg-Trace) mg/dL Urine Glucose (UA) Negative (Negative) mg/dL OB - CN: A/P Assessment and Plan (1) : Status: Inactive Assessment and Plan: Cholelithiasis Episodes of syncope Elevated blood pressurex1 Plan Discussed the case with Niyah Gil NP, recommend the following: -Defer management of Cholelithiasis per emergency room team. -Transfer LENCHO to [facility] for: blood pressure monitoring given her elevated blood pressure x1, rule out labor and NST. -While waiting in the emergency room for transfer, recommend Frequent Blood pressure monitoring, and treat for severe range (>=SBP 160 &/or DBP >= 110) if persistent within 15 minutes with emergent severe hypertension protocol. I spent a total of 20 minutes reviewing the chart, communicating to emergency room provider and documenting in the medical record Time Spent With Patient Time: Total time managing care of this patient today ____ minutes.
--- NOTE | 2023-01-05 22:52 | MHC.EDTECH ---
Call out to [facility] Transfer Line @1330. Spoke to Jil and gave demographics, [facility] will call Niyah WHITE back
[2023-01-05 22:58] VITALS: BP 125/76; PULSE 88; RESP 18; O2SAT 99
--- NOTE | 2023-01-05 23:48 | MHC.EDTECH ---
accepted at [facility] accepting is Madhavi Osorio
[2023-01-05] MEDS: cefTRIAXone sodium 1 GM in 0.9 % Sodium Chloride 50 ML IV (23:58)
[2023-01-06] VITALS: BP 120/67; PULSE 82; RESP 16; TEMP 36.4; O2SAT 100
--- NOTE | 2023-01-06 00:37 | PC.NURSE ---
this rn attempted to give nurse to nurse report per charge nurse unaware of pt being transferred to them. will call back. did not accept report at this time. [place] [facility] [place] [facility] [place] call
--- NOTE | 2023-01-06 01:40 | PC.NURSE ---
[facility] ligia Tarango did not call this rn back as previously stated. unable to give nurse to nurse report
== END 2023-01-06 00:37 | disposition short-term general hospital (02) ==
PROVIDERS: Nurse Practitioner Family; Physician Assistant; Emergency Provider Emergency Medicine
DX: O23.43 Unspecified infection of urinary tract in pregnancy, third trimester (principal); N39.0 Urinary tract infection, site not specified; R55 Syncope and collapse; Z3A.29 29 weeks gestation of pregnancy; Z20.822 Contact with and (suspected) exposure to COVID-19; Z20.828 Contact with and (suspected) exposure to other viral communicable diseases; Z79.899 Other long term (current) drug therapy
CPT/HCPCS: 0241U; 36415; 76705; 76815; 80053; 81001; 85025; 96361; 96365; 99285; J0696